=== PATIENT | female | born 1945 | race Caucasian/White ===

== ENCOUNTER 2019-01-30 20:44 | Inpatient (IN) | payer OTHER ==
[2019-01-30] MEDS ORDERED: NACL 0.9% 3 ML SYG IV (22:00)
[2019-01-30] MEDS: SOD CHLORIDE 0.9% 1,000 ML IV (22:15)
[2019-01-30 22:30] LABS: ADD MAN DIFF? NO
[2019-01-30 22:32] LABS: BASOPHILS % 0.3 % (0.0-2.0); EOSINOPHILS # 0.2 10^3/ul (0.0-0.5); EOSINOPHILS % 1.5 % (0.0-7.0); HEMATOCRIT 39.6 % (37.0-47.0); HEMOGLOBIN 12.8 g/dl (12.0-16.0); LYMPHOCYTES # 1.7 10^3/ul (0.8-2.9); LYMPHOCYTES % 16.1 % (15.0-51.0); MEAN CORPUSCULAR HGB CONC 32.3 g/dl (32.0-37.0); MEAN CORPUSCULAR VOLUME 89.6 fl (82.0-101.0); MEAN PLATELET VOLUME 9.2 fl (7.4-10.4); MONOCYTE # 1.1 10^3/ul (0.3-0.9); MONOCYTES % 10.4 % (0.0-11.0); NEUTROPHIL # 7.4 10^3/ul (1.6-7.5); NEUTROPHILS % 71.1 % (39.0-77.0); PLATELET COUNT 250 10^3/UL (140-415); RED BLOOD COUNT 4.42 10^6/ul (4.20-5.40)
[2019-01-30 22:32] LABS: WHITE BLOOD COUNT 10.4 10^3/ul (4.8-10.8)
[2019-01-30 22:52] LABS: ALANINE AMINOTRANSFERASE 22 IU/L (13-69); ALBUMIN 3.4 g/dl (3.3-4.9); ALBUMIN/GLOBULIN RATIO 1.03; ALKALINE PHOSPHATASE 120 IU/L (42-121); ANION GAP 11 (5-13); ASPARTATE AMINO TRANSFERASE 26 IU/L (15-46); BILIRUBIN,INDIRECT 0.8 mg/dl (0-1.1); BILIRUBIN,TOTAL 0.8 mg/dl (0.2-1.3); BLOOD UREA NITROGEN 10 mg/dl (7-20); CALCIUM 8.3 mg/dl (8.4-10.2); CARBON DIOXIDE 23 mmol/L (21-31); CHLORIDE 100 mmol/L (97-110); GLUCOSE 61 mg/dl (70-220); POTASSIUM 3.5 mmol/L (3.5-5.1); SODIUM 134 mmol/L (135-144); TOTAL PROTEIN 6.7 g/dl (6.1-8.1)
[2019-01-30 22:54] LABS: INR 1.25; PROTIME 15.8 Sec (11.9-14.9); PT RATIO 1.2
[2019-01-30 22:55] LABS: PARTIAL THROMBOPLASTIN TIME 33.7 Sec (23.0-35.0)
[2019-01-31] MEDS: traMADol 50 MG TAB PO ×2 (01:48→16:23)
[2019-01-31] MEDS: DEXTROSE 5%-0.45% NACL 1,000 ML IV ×3 (01:49→21:50)
[2019-01-31] MEDS ORDERED: DEXTROSE 50% 50 ML SYRINGE IV (02:00)
[2019-01-31] MEDS ORDERED: GLUCOSE GEL 15 GRAM TUBE PO ×2 (02:00)
[2019-01-31] MEDS ORDERED: GLUCAGON 1 MG INJ IM (02:00)
[2019-01-31] MEDS ORDERED: ACCU-CHEK XX (02:00)
[2019-01-31] MEDS: INSULIN ASPART [NOVOLOG] 3 ML PEN SC ×5 (05:00→21:00)
[2019-01-31] MEDS: ACETAMINOPHEN 325 MG TAB PO (05:20)
[2019-01-31 05:33] LABS: ADD MAN DIFF? NO
[2019-01-31 05:40] LABS: BASOPHILS % 0.2 % (0.0-2.0); EOSINOPHILS # 0.2 10^3/ul (0.0-0.5); EOSINOPHILS % 1.8 % (0.0-7.0); HEMATOCRIT 36.9 % (37.0-47.0); HEMOGLOBIN 12.1 g/dl (12.0-16.0); LYMPHOCYTES # 1.6 10^3/ul (0.8-2.9); LYMPHOCYTES % 16.4 % (15.0-51.0); MEAN CORPUSCULAR HEMOGLOBIN 29.1 pg (29.0-33.0); MEAN CORPUSCULAR HGB CONC 32.8 g/dl (32.0-37.0); MEAN CORPUSCULAR VOLUME 88.7 fl (82.0-101.0); MEAN PLATELET VOLUME 9.4 fl (7.4-10.4); MONOCYTE # 0.9 10^3/ul (0.3-0.9); MONOCYTES % 9.6 % (0.0-11.0); NEUTROPHIL # 6.9 10^3/ul (1.6-7.5); NEUTROPHILS % 71.6 % (39.0-77.0); PLATELET COUNT 255 10^3/UL (140-415); RED BLOOD COUNT 4.16 10^6/ul (4.20-5.40); RED CELL DISTRIBUTION WIDTH 12.9 % (11.5-14.5)
[2019-01-31 05:40] LABS: WHITE BLOOD COUNT 9.6 10^3/ul (4.8-10.8)
[2019-01-31 06:21] LABS: ALANINE AMINOTRANSFERASE 19 IU/L (13-69); ALBUMIN 3.2 g/dl (3.3-4.9); ALKALINE PHOSPHATASE 101 IU/L (42-121); ANION GAP 7 (5-13); ASPARTATE AMINO TRANSFERASE 28 IU/L (15-46); BILIRUBIN,INDIRECT 0.8 mg/dl (0-1.1); BILIRUBIN,TOTAL 0.8 mg/dl (0.2-1.3); BLOOD UREA NITROGEN 12 mg/dl (7-20); CALCIUM 8.3 mg/dl (8.4-10.2); CARBON DIOXIDE 27 mmol/L (21-31); CHLORIDE 102 mmol/L (97-110); CHOL/HDL RATIO 4.5 RATIO; CHOLESTEROL 172 mg/dl (100-200); GLUCOSE 87 mg/dl (70-220); HDL CHOLESTEROL 38 mg/dl (33-92); LDL CHOLESTEROL,CALCULATED 115 mg/dl; POTASSIUM 3.2 mmol/L (3.5-5.1); SODIUM 136 mmol/L (135-144); TOTAL PROTEIN 6.1 g/dl (6.1-8.1); TRIGLYCERIDES 93 mg/dl (0-149)
[2019-01-31 06:29] LABS: FREE T4 (FREE THYROXINE) 1.38 ng/dl (0.78-2.44)
[2019-01-31 06:33] LABS: FREE T3 2.94 pg/ml (2.77-5.27)
[2019-01-31 06:35] LABS: LACTIC ACID 0.8 mmol/L (0.5-2.0)
[2019-01-31 08:14] LABS: HEMOGLOBIN A1C 5.2 % (0-5.9)
[2019-01-31 08:50] LABS: THYROID STIMULATING HORMONE 0.145 MIU/L (0.465-4.680)
[2019-01-31] MEDS: LEVETIRACETAM 500 MG (PMX) 100 ML IVPB ×2 (09:36→20:32)
[2019-01-31] MEDS: POTASSIUM CHLORIDE 100 ML IVPB ×2 (10:49→13:40)
[2019-01-31 11:47] LABS: ADD UMIC YES; UR ASCORBIC ACID NEGATIVE (NEGATIVE); UR BILIRUBIN (Dip) NEGATIVE (NEGATIVE); UR BLOOD (Dip) 1+ mg/dL (NEGATIVE); UR CLARITY SLIGHTLY CLOUDY (CLEAR); UR COLOR YELLOW (YELLOW); UR GLUCOSE (Dip) 1+ mg/dL (NEGATIVE); UR KETONES (Dip) 1+ mg/dL (NEGATIVE); UR LEUKOCYTE ESTERASE (Dip) 1+ Leu/ul (NEGATIVE); UR NITRITE (Dip) NEGATIVE (NEGATIVE); UR RBC 3 /HPF (0-5); UR SPECIFIC GRAVITY (Dip) 1.036 (1.003-1.030); UR SQUAMOUS EPITHELIAL CELL MODERATE /HPF (FEW); UR TOTAL PROTEIN (Dip) NEGATIVE (NEGATIVE); UR UROBILINOGEN (Dip) 1+ mg/dL (NEGATIVE); UR WBC 3 /HPF (0-5)
[2019-01-31] MEDS: LACTATED RINGER'S 500 ML IV (13:41)
[2019-01-31] MEDS: ONDANSETRON 4 MG INJ IV (18:39)
[2019-01-31] MEDS: CEFTRIAXONE 1 GM/50 ML (PMX) 50 ML IVPB (20:26)
[2019-02-01] MEDS: INSULIN ASPART [NOVOLOG] 3 ML PEN SC ×6 (01:00→20:31)
[2019-02-01] MEDS ORDERED: VANCOMYCIN IV PER PHARMACY XX (02:00)
[2019-02-01] MEDS: VANCOMYCIN HCL 1.25 GM in SOD CHLORIDE 0.9% 250 ML IVPB (02:52)
[2019-02-01 05:25] LABS: ADD MAN DIFF? NO
[2019-02-01 05:30] LABS: WHITE BLOOD COUNT 8.4 10^3/ul (4.8-10.8)
[2019-02-01 05:30] LABS: BASOPHILS % 0.1 % (0.0-2.0); EOSINOPHILS # 0.2 10^3/ul (0.0-0.5); EOSINOPHILS % 2.3 % (0.0-7.0); HEMATOCRIT 37.4 % (37.0-47.0); HEMOGLOBIN 12.1 g/dl (12.0-16.0); LYMPHOCYTES % 11.9 % (15.0-51.0); MEAN CORPUSCULAR HEMOGLOBIN 28.8 pg (29.0-33.0); MEAN CORPUSCULAR HGB CONC 32.4 g/dl (32.0-37.0); MEAN PLATELET VOLUME 9.6 fl (7.4-10.4); MONOCYTE # 0.7 10^3/ul (0.3-0.9); MONOCYTES % 8.9 % (0.0-11.0); NEUTROPHIL # 6.4 10^3/ul (1.6-7.5); NEUTROPHILS % 76.3 % (39.0-77.0); PLATELET COUNT 231 10^3/UL (140-415)
[2019-02-01 06:09] LABS: T4 (THYROXINE) 7.2 ug/dl (5.5-11.0)
[2019-02-01 06:23] LABS: TRIIODOTHYRONINE 0.72 ng/ml (0.97-1.69)
[2019-02-01 07:14] LABS: ALANINE AMINOTRANSFERASE 25 IU/L (13-69); ALBUMIN 2.8 g/dl (3.3-4.9); ALKALINE PHOSPHATASE 102 IU/L (42-121); ANION GAP 5 (5-13); ASPARTATE AMINO TRANSFERASE 29 IU/L (15-46); BILIRUBIN,INDIRECT 0.6 mg/dl (0-1.1); BILIRUBIN,TOTAL 0.6 mg/dl (0.2-1.3); BLOOD UREA NITROGEN 7 mg/dl (7-20); CALCIUM 7.6 mg/dl (8.4-10.2); CARBON DIOXIDE 26 mmol/L (21-31); CHLORIDE 105 mmol/L (97-110); CREATININE 0.54 mg/dl (0.44-1.00); GLUCOSE 85 mg/dl (70-220); POTASSIUM 3.4 mmol/L (3.5-5.1); SODIUM 136 mmol/L (135-144); TOTAL PROTEIN 5.9 g/dl (6.1-8.1)
[2019-02-01] MEDS ORDERED: POTASSIUM CHLORIDE 20 MEQ in DEXTROSE 5%-0.45% NACL 1,000 ML IV (08:44)
[2019-02-01] MEDS: LEVETIRACETAM 500 MG (PMX) 100 ML IVPB ×2 (09:04→20:22)
[2019-02-01] MEDS: traMADol 50 MG TAB PO (09:10)
[2019-02-01] MEDS: D5W-0.45 NACL + KCL 20 MEQ 1,000 ML IV ×2 (09:10→19:53)
[2019-02-01] MEDS ORDERED: IOHEXOL 14.3 MG(I)/ML (ADULT) BTL PO (14:30)
[2019-02-01] MEDS: IOHEXOL 14.3 MG(I)/ML (ADULT) BTL PO (19:52)
[2019-02-01] MEDS: CEFTRIAXONE 1 GM/50 ML (PMX) 50 ML IVPB (20:05)
[2019-02-01] MEDS: IOHEXOL 300MG/ML 150 ML BTL (21:12)
[2019-02-01] MEDS: SOD CHLORIDE 0.9% 100 ML (21:12)
[2019-02-02] MEDS: INSULIN ASPART [NOVOLOG] 3 ML PEN SC ×6 (01:00→20:35)
[2019-02-02] MEDS: VANCOMYCIN 1 GM 250 ML IVPB (02:16)
[2019-02-02] MEDS: traMADol 50 MG TAB PO (03:46)
[2019-02-02 04:59] LABS: ADD MAN DIFF? NO
[2019-02-02] MEDS: D5W-0.45 NACL + KCL 20 MEQ 1,000 ML IV ×2 (05:00→13:42)
[2019-02-02 05:02] LABS: WHITE BLOOD COUNT 12.9 10^3/ul (4.8-10.8)
[2019-02-02 05:02] LABS: BASOPHILS % 0.3 % (0.0-2.0); EOSINOPHILS # 0.2 10^3/ul (0.0-0.5); EOSINOPHILS % 1.8 % (0.0-7.0); HEMATOCRIT 37.4 % (37.0-47.0); HEMOGLOBIN 12.1 g/dl (12.0-16.0); LYMPHOCYTES % 7.9 % (15.0-51.0); MEAN CORPUSCULAR HEMOGLOBIN 28.7 pg (29.0-33.0); MEAN CORPUSCULAR HGB CONC 32.4 g/dl (32.0-37.0); MEAN CORPUSCULAR VOLUME 88.8 fl (82.0-101.0); MEAN PLATELET VOLUME 9.6 fl (7.4-10.4); MONOCYTE # 1.3 10^3/ul (0.3-0.9); MONOCYTES % 10.2 % (0.0-11.0); NEUTROPHIL # 10.2 10^3/ul (1.6-7.5); NEUTROPHILS % 79.2 % (39.0-77.0); PLATELET COUNT 225 10^3/UL (140-415); RED BLOOD COUNT 4.21 10^6/ul (4.20-5.40); RED CELL DISTRIBUTION WIDTH 13.1 % (11.5-14.5)
[2019-02-02 05:27] LABS: ALANINE AMINOTRANSFERASE 24 IU/L (13-69); ALBUMIN 2.8 g/dl (3.3-4.9); ALBUMIN/GLOBULIN RATIO 0.82; ALKALINE PHOSPHATASE 102 IU/L (42-121); ANION GAP 5 (5-13); ASPARTATE AMINO TRANSFERASE 27 IU/L (15-46); BILIRUBIN,INDIRECT 0.7 mg/dl (0-1.1); BILIRUBIN,TOTAL 0.7 mg/dl (0.2-1.3); BLOOD UREA NITROGEN 15 mg/dl (7-20); CALCIUM 7.9 mg/dl (8.4-10.2); CARBON DIOXIDE 25 mmol/L (21-31); CHLORIDE 103 mmol/L (97-110); CREATININE 1.63 mg/dl (0.44-1.00); GLUCOSE 95 mg/dl (70-220); POTASSIUM 4.8 mmol/L (3.5-5.1); SODIUM 133 mmol/L (135-144); TOTAL PROTEIN 6.2 g/dl (6.1-8.1)
[2019-02-02] MEDS: LEVETIRACETAM 500 MG (PMX) 100 ML IVPB ×2 (09:36→21:18)
[2019-02-02 10:50] LABS: URIC ACID 5.3 mg/dl (3.1-7.9)
[2019-02-02 10:50] LABS: LACTATE DEHYDROGENASE 1496 IU/L (313-618)
[2019-02-02] MEDS: LIDOCAINE 1% (MPF) 5 ML VIAL (12:58)
[2019-02-02] MEDS: DEXAMETHASONE 4 MG/ML 1 ML INJ IV ×2 (16:35→22:03)
[2019-02-02] MEDS: CEFTRIAXONE 1 GM/50 ML (PMX) 50 ML IVPB (20:33)
[2019-02-03] MEDS: INSULIN ASPART [NOVOLOG] 3 ML PEN SC ×5 (01:29→17:00)
[2019-02-03 05:13] LABS: ABNORMAL IP MESSAGE 1; HEMATOCRIT 33.5 % (37.0-47.0); HEMOGLOBIN 11.1 g/dl (12.0-16.0); MEAN CORPUSCULAR HEMOGLOBIN 29.1 pg (29.0-33.0); MEAN CORPUSCULAR HGB CONC 33.1 g/dl (32.0-37.0); MEAN CORPUSCULAR VOLUME 87.9 fl (82.0-101.0); MEAN PLATELET VOLUME 10.1 fl (7.4-10.4); PLATELET COUNT 181 10^3/UL (140-415); RED BLOOD COUNT 3.81 10^6/ul (4.20-5.40); RED CELL DISTRIBUTION WIDTH 13.3 % (11.5-14.5)
[2019-02-03 05:13] LABS: WHITE BLOOD COUNT 10.9 10^3/ul (4.8-10.8)
[2019-02-03 05:24] LABS: POSITIVE DIFF @See below
[2019-02-03 05:28] LABS: ADD MAN DIFF? YES
[2019-02-03] MEDS: DEXAMETHASONE 4 MG/ML 1 ML INJ IV ×3 (05:45→21:15)
[2019-02-03 05:49] LABS: ALANINE AMINOTRANSFERASE 18 IU/L (13-69); ALBUMIN 2.6 g/dl (3.3-4.9); ALBUMIN/GLOBULIN RATIO 0.76; ALKALINE PHOSPHATASE 95 IU/L (42-121); ANION GAP 8 (5-13); ASPARTATE AMINO TRANSFERASE 23 IU/L (15-46); BILIRUBIN,INDIRECT 0.4 mg/dl (0-1.1); BILIRUBIN,TOTAL 0.4 mg/dl (0.2-1.3); BLOOD UREA NITROGEN 22 mg/dl (7-20); CALCIUM 8.2 mg/dl (8.4-10.2); CARBON DIOXIDE 19 mmol/L (21-31); CHLORIDE 106 mmol/L (97-110); CREATININE 2.17 mg/dl (0.44-1.00); GLUCOSE 185 mg/dl (70-220); POTASSIUM 5.3 mmol/L (3.5-5.1); SODIUM 133 mmol/L (135-144)
[2019-02-03 08:05] LABS: BAND NEUTROPHILS #M 1.1 10^3/ul (0.0-0.6); BAND NEUTROPHILS % (M) 11 % (0-4); BURR CELLS 3+ (0-0); LYMPHOCYTES #M 0.2 10^3/ul (0.8-2.9); LYMPHOCYTES % (M) 2 % (15-51); MONOCYTE #M 0.2 10^3/ul (0.3-0.9); MONOCYTES % (M) 2 % (0-11); OVALOCYTES 1+ (0-0); PLATELET ESTIMATE NORMAL; POIKILOCYTOSIS 3+ (0-0); SEG NEUT #M 9.4 10^3/ul (1.6-7.5); SEGMENTED NEUTROPHILS (M) % 85 % (39-77); SMUDGE%M 2 % (0-0)
[2019-02-03] MEDS: LEVETIRACETAM 500 MG (PMX) 100 ML IVPB ×2 (09:57→20:15)
[2019-02-03] MEDS: D5W-0.45 NACL + KCL 20 MEQ 1,000 ML IV ×2 (09:57)
[2019-02-03] MEDS: SOD CHLORIDE 0.9% 1,000 ML IV (11:51)
[2019-02-03 12:37] LABS: POTASSIUM,URINE RANDOM 27.4 mmol/L (25-125)
[2019-02-03 13:06] LABS: SODIUM,URINE RANDOM 100 mmol/L (30-90)
[2019-02-03 15:28] LABS: POTASSIUM 4.7 mmol/L (3.5-5.1)
[2019-02-03] MEDS: CEFTRIAXONE 1 GM/50 ML (PMX) 50 ML IVPB (20:13)
[2019-02-03] MEDS: HEPARIN 5,000 UNIT/1 ML VIAL SC (20:15)
[2019-02-03] MEDS ORDERED: ACCUCHECK 2 AM XX (20:30)
[2019-02-03] MEDS ORDERED: INSULIN ASPART [NOVOLOG] 3 ML PEN SC (21:00)
[2019-02-03] MEDS: Insulin NOVOLOG SS MILD Algorithm (SS with meals and bedtime) SC (21:00)
[2019-02-03] MEDS: ACCUCHECK AT 2AM (Patients on SS coverage) XX (21:09)
[2019-02-04 06:01] LABS: VANCOMYCIN,RANDOM 7.3 ug/ml
[2019-02-04] MEDS: DEXAMETHASONE 4 MG/ML 1 ML INJ IV ×3 (06:20→21:42)
[2019-02-04 06:39] LABS: ANION GAP 5 (5-13); BLOOD UREA NITROGEN 24 mg/dl (7-20); CALCIUM 8.5 mg/dl (8.4-10.2); CARBON DIOXIDE 24 mmol/L (21-31); CHLORIDE 112 mmol/L (97-110); CREATININE 0.96 mg/dl (0.44-1.00); GLUCOSE 123 mg/dl (70-220); POTASSIUM 4.9 mmol/L (3.5-5.1); SODIUM 141 mmol/L (135-144)
[2019-02-04] MEDS: HEPARIN 5,000 UNIT/1 ML VIAL SC ×2 (09:02→21:43)
[2019-02-04] MEDS: Insulin NOVOLOG SS MILD Algorithm (SS with meals and bedtime) SC ×4 (09:02→21:00)
[2019-02-04] MEDS: LEVETIRACETAM 500 MG (PMX) 100 ML IVPB ×2 (09:04→21:42)
[2019-02-04] MEDS: VANCOMYCIN 1 GM 250 ML IVPB (10:23)
[2019-02-04] MEDS: SOD CHLORIDE 0.9% 1,000 ML IV (14:44)
[2019-02-04] MEDS: CEFTRIAXONE 1 GM/50 ML (PMX) 50 ML IVPB (20:01)
[2019-02-05] MEDS: ACCUCHECK AT 2AM (Patients on SS coverage) XX (02:00)
[2019-02-05 05:19] LABS: ADD MAN DIFF? NO
[2019-02-05 05:26] LABS: WHITE BLOOD COUNT 7.5 10^3/ul (4.8-10.8)
[2019-02-05 05:26] LABS: ABNORMAL IP MESSAGE 1; BASOPHILS % 0.1 % (0.0-2.0); HEMATOCRIT 31.4 % (37.0-47.0); HEMOGLOBIN 10.2 g/dl (12.0-16.0); LYMPHOCYTES # 0.3 10^3/ul (0.8-2.9); LYMPHOCYTES % 4.1 % (15.0-51.0); MEAN CORPUSCULAR HGB CONC 32.5 g/dl (32.0-37.0); MEAN CORPUSCULAR VOLUME 89.2 fl (82.0-101.0); MEAN PLATELET VOLUME 9.9 fl (7.4-10.4); MONOCYTE # 0.3 10^3/ul (0.3-0.9); MONOCYTES % 3.3 % (0.0-11.0); NEUTROPHIL # 6.9 10^3/ul (1.6-7.5); PLATELET COUNT 227 10^3/UL (140-415); RED BLOOD COUNT 3.52 10^6/ul (4.20-5.40); RED CELL DISTRIBUTION WIDTH 13.6 % (11.5-14.5)
[2019-02-05] MEDS: DEXAMETHASONE 4 MG/ML 1 ML INJ IV ×3 (05:30→21:10)
[2019-02-05 05:33] LABS: POSITIVE DIFF @See below
[2019-02-05 05:49] LABS: ALBUMIN 2.8 g/dl (3.3-4.9); ANION GAP 4 (5-13); BLOOD UREA NITROGEN 20 mg/dl (7-20); CALCIUM 8.6 mg/dl (8.4-10.2); CARBON DIOXIDE 27 mmol/L (21-31); CHLORIDE 112 mmol/L (97-110); CREATININE 0.67 mg/dl (0.44-1.00); GLUCOSE 121 mg/dl (70-220); MAGNESIUM 2.2 mg/dl (1.7-2.5); PHOSPHORUS 3.2 mg/dl (2.5-4.9); POTASSIUM 4.2 mmol/L (3.5-5.1); SODIUM 143 mmol/L (135-144)
[2019-02-05] MEDS: Insulin NOVOLOG SS MILD Algorithm (SS with meals and bedtime) SC ×4 (08:33→21:00)
[2019-02-05] MEDS: LEVETIRACETAM 500 MG (PMX) 100 ML IVPB ×2 (08:50→20:56)
[2019-02-05] MEDS: HEPARIN 5,000 UNIT/1 ML VIAL SC ×2 (08:52→20:57)
[2019-02-05] MEDS: VANCOMYCIN 1 GM 250 ML IVPB (11:58)
[2019-02-05] MEDS: CEFTRIAXONE 1 GM/50 ML (PMX) 50 ML IVPB (20:57)
[2019-02-05] MEDS: SOD CHLORIDE 0.9% 1,000 ML IV (21:05)
[2019-02-06] MEDS: ACCUCHECK AT 2AM (Patients on SS coverage) XX (02:00)
[2019-02-06] MEDS: DEXAMETHASONE 4 MG/ML 1 ML INJ IV ×2 (05:15→14:53)
[2019-02-06 05:42] LABS: ADD MAN DIFF? NO
[2019-02-06 05:44] LABS: ABNORMAL IP MESSAGE 1; BASOPHILS % 0.1 % (0.0-2.0); HEMATOCRIT 29.1 % (37.0-47.0); HEMOGLOBIN 9.3 g/dl (12.0-16.0); LYMPHOCYTES # 0.4 10^3/ul (0.8-2.9); LYMPHOCYTES % 5.2 % (15.0-51.0); MEAN CORPUSCULAR HEMOGLOBIN 28.7 pg (29.0-33.0); MEAN CORPUSCULAR VOLUME 89.8 fl (82.0-101.0); MEAN PLATELET VOLUME 10.3 fl (7.4-10.4); MONOCYTE # 0.4 10^3/ul (0.3-0.9); MONOCYTES % 5.6 % (0.0-11.0); NEUTROPHIL # 6.5 10^3/ul (1.6-7.5); NEUTROPHILS % 88.6 % (39.0-77.0); PLATELET COUNT 224 10^3/UL (140-415); RED BLOOD COUNT 3.24 10^6/ul (4.20-5.40); RED CELL DISTRIBUTION WIDTH 13.5 % (11.5-14.5)
[2019-02-06 05:44] LABS: WHITE BLOOD COUNT 7.3 10^3/ul (4.8-10.8)
[2019-02-06 05:52] LABS: POSITIVE DIFF @See below
[2019-02-06 06:25] LABS: ANION GAP 7 (5-13); BLOOD UREA NITROGEN 17 mg/dl (7-20); CALCIUM 8.6 mg/dl (8.4-10.2); CARBON DIOXIDE 26 mmol/L (21-31); CHLORIDE 110 mmol/L (97-110); CREATININE 0.59 mg/dl (0.44-1.00); GLUCOSE 116 mg/dl (70-220); MAGNESIUM 1.8 mg/dl (1.7-2.5); PHOSPHORUS 2.9 mg/dl (2.5-4.9); POTASSIUM 4.3 mmol/L (3.5-5.1); SODIUM 143 mmol/L (135-144)
[2019-02-06] MEDS: Insulin NOVOLOG SS MILD Algorithm (SS with meals and bedtime) SC ×4 (07:20→20:40)
[2019-02-06] MEDS: LEVETIRACETAM 500 MG (PMX) 100 ML IVPB ×2 (08:29→20:38)
[2019-02-06] MEDS: HEPARIN 5,000 UNIT/1 ML VIAL SC ×2 (08:40→20:40)
[2019-02-06] MEDS: VANCOMYCIN 1 GM 250 ML IVPB (10:19)
[2019-02-06 16:31] LABS: FOLLICLE STIMULATING HORMONE 7.5 mIU/mL; PROLACTIN 2.1 ng/mL
[2019-02-07] MEDS: ACCUCHECK AT 2AM (Patients on SS coverage) XX ×2 (02:00→20:39)
[2019-02-07 05:23] LABS: ADD MAN DIFF? NO
[2019-02-07 05:32] LABS: ABNORMAL IP MESSAGE 1; BASOPHILS % 0.1 % (0.0-2.0); HEMOGLOBIN 9.9 g/dl (12.0-16.0); LYMPHOCYTES # 0.5 10^3/ul (0.8-2.9); LYMPHOCYTES % 6.5 % (15.0-51.0); MEAN CORPUSCULAR HEMOGLOBIN 28.3 pg (29.0-33.0); MEAN CORPUSCULAR HGB CONC 31.9 g/dl (32.0-37.0); MEAN CORPUSCULAR VOLUME 88.6 fl (82.0-101.0); MEAN PLATELET VOLUME 9.9 fl (7.4-10.4); MONOCYTE # 0.7 10^3/ul (0.3-0.9); MONOCYTES % 8.3 % (0.0-11.0); NEUTROPHIL # 6.7 10^3/ul (1.6-7.5); PLATELET COUNT 258 10^3/UL (140-415); RED CELL DISTRIBUTION WIDTH 13.4 % (11.5-14.5)
[2019-02-07 05:46] LABS: POSITIVE DIFF @See below
[2019-02-07 05:54] LABS: ANION GAP 3 (5-13); BLOOD UREA NITROGEN 18 mg/dl (7-20); CALCIUM 8.2 mg/dl (8.4-10.2); CARBON DIOXIDE 30 mmol/L (21-31); CHLORIDE 109 mmol/L (97-110); CREATININE 0.56 mg/dl (0.44-1.00); GLUCOSE 96 mg/dl (70-220); MAGNESIUM 1.9 mg/dl (1.7-2.5); PHOSPHORUS 3.2 mg/dl (2.5-4.9); POTASSIUM 4.1 mmol/L (3.5-5.1); SODIUM 142 mmol/L (135-144)
[2019-02-07] MEDS: Insulin NOVOLOG SS MILD Algorithm (SS with meals and bedtime) SC ×4 (08:15→20:36)
[2019-02-07] MEDS: LEVETIRACETAM 500 MG (PMX) 100 ML IVPB ×2 (09:14→20:31)
[2019-02-07] MEDS: HEPARIN 5,000 UNIT/1 ML VIAL SC ×2 (09:16→20:38)
[2019-02-07] MEDS: BISACODYL (EC) 5 MG TAB PO (19:08)
[2019-02-08 05:49] LABS: ADD MAN DIFF? NO
[2019-02-08 06:06] LABS: BASOPHILS % 0.4 % (0.0-2.0); EOSINOPHILS # 0.1 10^3/ul (0.0-0.5); EOSINOPHILS % 1.3 % (0.0-7.0); HEMATOCRIT 33.6 % (37.0-47.0); HEMOGLOBIN 10.6 g/dl (12.0-16.0); LYMPHOCYTES # 1.3 10^3/ul (0.8-2.9); LYMPHOCYTES % 15.5 % (15.0-51.0); MEAN CORPUSCULAR HEMOGLOBIN 28.1 pg (29.0-33.0); MEAN CORPUSCULAR HGB CONC 31.5 g/dl (32.0-37.0); MEAN CORPUSCULAR VOLUME 89.1 fl (82.0-101.0); MEAN PLATELET VOLUME 9.9 fl (7.4-10.4); MONOCYTE # 0.8 10^3/ul (0.3-0.9); NEUTROPHIL # 5.7 10^3/ul (1.6-7.5); NEUTROPHILS % 69.5 % (39.0-77.0); PLATELET COUNT 287 10^3/UL (140-415); RED BLOOD COUNT 3.77 10^6/ul (4.20-5.40); RED CELL DISTRIBUTION WIDTH 13.3 % (11.5-14.5)
[2019-02-08 06:06] LABS: WHITE BLOOD COUNT 8.2 10^3/ul (4.8-10.8)
[2019-02-08 06:19] LABS: INR 1.18; PROTIME 15.1 Sec (11.9-14.9); PT RATIO 1.2
[2019-02-08 06:20] LABS: PARTIAL THROMBOPLASTIN TIME 31.5 Sec (23.0-35.0)
[2019-02-08 06:32] LABS: ANION GAP 3 (5-13); BLOOD UREA NITROGEN 17 mg/dl (7-20); CARBON DIOXIDE 34 mmol/L (21-31); CHLORIDE 103 mmol/L (97-110); CREATININE 0.52 mg/dl (0.44-1.00); GLUCOSE 72 mg/dl (70-220); MAGNESIUM 1.9 mg/dl (1.7-2.5); PHOSPHORUS 3.6 mg/dl (2.5-4.9); POTASSIUM 3.9 mmol/L (3.5-5.1); SODIUM 140 mmol/L (135-144)
[2019-02-08] MEDS ORDERED: LIDOCAINE 2% (SDV) 5 ML INJ (07:00)
[2019-02-08] MEDS ORDERED: DESFLURANE 15 MIN (07:00)
[2019-02-08] MEDS: Insulin NOVOLOG SS MILD Algorithm (SS with meals and bedtime) SC ×4 (07:20→21:00)
[2019-02-08] MEDS: HEPARIN 5,000 UNIT/1 ML VIAL SC ×2 (09:00→20:51)
[2019-02-08] MEDS: morphine 2 MG INJ IV (09:02)
[2019-02-08] MEDS: LEVETIRACETAM 500 MG (PMX) 100 ML IVPB ×2 (09:02→20:48)
[2019-02-08] MEDS: DEXTROSE 5%-0.45% NACL 1,000 ML IV ×2 (09:39→18:53)
[2019-02-08] MEDS ORDERED: POLYMYXIN/BACITRACIN 1L IRRIG (12:48)
[2019-02-08] MEDS ORDERED: LIDOCAINE 1%/EPI 30 ML INJ (12:55)
[2019-02-08] MEDS ORDERED: POVIDONE IODINE 10% 28.4 GM OINT (13:06)
[2019-02-08] MEDS ORDERED: ALBUTEROL 0.083% (NEB) 2.5 MG/3 ML AMP HHN (13:30)
[2019-02-08] MEDS ORDERED: DIPHENHYDRAMINE 50 MG INJ IV (13:30)
[2019-02-08] MEDS ORDERED: FENTAnyl 50 MCG/ML VIAL IV ×2 (13:30)
[2019-02-08] MEDS ORDERED: METOCLOPRAMIDE 10 MG INJ IV (13:30)
[2019-02-08] MEDS ORDERED: MEPERIDINE 25 MG INJ IV (13:30)
[2019-02-08] MEDS ORDERED: HYDROmorphONE 1 MG/5 ML IV SYRINGE IV ×2 (13:30)
[2019-02-08] MEDS ORDERED: ONDANSETRON 4 MG INJ IV (13:30)
[2019-02-08] MEDS ORDERED: FENTAnyl 50 MCG/ML VIAL (13:32)
[2019-02-08] MEDS: OXYMETAZOLINE 0.05% 15 ML NAS SPRAY NASAL (14:46)
[2019-02-08] MEDS ORDERED: THROMBIN(HUM PLAS)/FIBRINOG/CA 5 ML VIAL TOP (15:40)
[2019-02-08] MEDS: THROMBIN 5000 UNIT VIAL (15:59)
[2019-02-08] MEDS: GELATIN SIZE 100 SPONGE (15:59)
[2019-02-08] MEDS ORDERED: ROCURONIUM 50 MG INJ (16:11)
[2019-02-08] MEDS ORDERED: CEFAZOLIN 1 GM INJ (16:11)
[2019-02-08] MEDS ORDERED: PROPOFOL 20 ML (16:11)
[2019-02-08] MEDS ORDERED: SUCCINYLCHOLINE CHLORIDE 100 MG/5 ML SYG IV (16:11)
[2019-02-08] MEDS ORDERED: SUGAMMADEX SODIUM 200 MG/2 ML VIAL IV (16:11)
[2019-02-08] MEDS: HYDROmorphONE 1 MG/5 ML IV SYRINGE IV (16:55)
[2019-02-08 21:44] LABS: ANION GAP 4 (5-13); BLOOD UREA NITROGEN 13 mg/dl (7-20); CALCIUM 7.2 mg/dl (8.4-10.2); CARBON DIOXIDE 30 mmol/L (21-31); CHLORIDE 102 mmol/L (97-110); CREATININE 0.54 mg/dl (0.44-1.00); GLUCOSE 113 mg/dl (70-220); POTASSIUM 3.6 mmol/L (3.5-5.1); SODIUM 136 mmol/L (135-144)
[2019-02-08] MEDS: ACCUCHECK AT 2AM (Patients on SS coverage) XX (22:13)
[2019-02-09] MEDS: DEXTROSE 5%-0.45% NACL 1,000 ML IV (04:39)
[2019-02-09 05:00] LABS: ADD MAN DIFF? NO
[2019-02-09 05:08] LABS: WHITE BLOOD COUNT 9.1 10^3/ul (4.8-10.8)
[2019-02-09 05:08] LABS: BASOPHILS % 0.3 % (0.0-2.0); EOSINOPHILS # 0.3 10^3/ul (0.0-0.5); EOSINOPHILS % 3.6 % (0.0-7.0); HEMATOCRIT 32.1 % (37.0-47.0); HEMOGLOBIN 10.3 g/dl (12.0-16.0); LYMPHOCYTES # 1.6 10^3/ul (0.8-2.9); LYMPHOCYTES % 17.2 % (15.0-51.0); MEAN CORPUSCULAR HEMOGLOBIN 28.9 pg (29.0-33.0); MEAN CORPUSCULAR HGB CONC 32.1 g/dl (32.0-37.0); MEAN CORPUSCULAR VOLUME 89.9 fl (82.0-101.0); MEAN PLATELET VOLUME 9.5 fl (7.4-10.4); MONOCYTE # 0.7 10^3/ul (0.3-0.9); MONOCYTES % 8.1 % (0.0-11.0); NEUTROPHIL # 6.1 10^3/ul (1.6-7.5); NEUTROPHILS % 66.9 % (39.0-77.0); PLATELET COUNT 273 10^3/UL (140-415); RED BLOOD COUNT 3.57 10^6/ul (4.20-5.40); RED CELL DISTRIBUTION WIDTH 13.6 % (11.5-14.5)
[2019-02-09 05:24] LABS: ANION GAP 2 (5-13); BLOOD UREA NITROGEN 11 mg/dl (7-20); CALCIUM 7.3 mg/dl (8.4-10.2); CARBON DIOXIDE 31 mmol/L (21-31); CHLORIDE 103 mmol/L (97-110); CREATININE 0.48 mg/dl (0.44-1.00); GLUCOSE 96 mg/dl (70-220); MAGNESIUM 1.9 mg/dl (1.7-2.5); PHOSPHORUS 4.5 mg/dl (2.5-4.9); POTASSIUM 3.8 mmol/L (3.5-5.1); SODIUM 136 mmol/L (135-144)
[2019-02-09] MEDS: Insulin NOVOLOG SS MILD Algorithm (SS with meals and bedtime) SC ×4 (07:20→20:02)
[2019-02-09] MEDS: LEVETIRACETAM 500 MG (PMX) 100 ML IVPB ×2 (08:21→20:07)
[2019-02-09] MEDS: HEPARIN 5,000 UNIT/1 ML VIAL SC (08:22)
[2019-02-09 09:47] LABS: ANION GAP 5 (5-13); BLOOD UREA NITROGEN 11 mg/dl (7-20); CALCIUM 7.2 mg/dl (8.4-10.2); CARBON DIOXIDE 28 mmol/L (21-31); CHLORIDE 102 mmol/L (97-110); CREATININE 0.52 mg/dl (0.44-1.00); GLUCOSE 82 mg/dl (70-220); SODIUM 135 mmol/L (135-144)
[2019-02-09 10:27] LABS: ADD MAN DIFF? NO
[2019-02-09] MEDS: DEXAMETHASONE 4 MG/ML 1 ML INJ IV ×3 (10:28→22:01)
[2019-02-09 10:30] LABS: BASOPHILS % 0.3 % (0.0-2.0); EOSINOPHILS # 0.4 10^3/ul (0.0-0.5); EOSINOPHILS % 3.8 % (0.0-7.0); HEMATOCRIT 30.1 % (37.0-47.0); HEMOGLOBIN 9.8 g/dl (12.0-16.0); LYMPHOCYTES # 1.6 10^3/ul (0.8-2.9); MEAN CORPUSCULAR HEMOGLOBIN 29.3 pg (29.0-33.0); MEAN CORPUSCULAR HGB CONC 32.6 g/dl (32.0-37.0); MEAN CORPUSCULAR VOLUME 90.1 fl (82.0-101.0); MEAN PLATELET VOLUME 9.3 fl (7.4-10.4); MONOCYTE # 0.9 10^3/ul (0.3-0.9); MONOCYTES % 8.5 % (0.0-11.0); NEUTROPHIL # 6.7 10^3/ul (1.6-7.5); NEUTROPHILS % 66.5 % (39.0-77.0); PLATELET COUNT 255 10^3/UL (140-415); RED BLOOD COUNT 3.34 10^6/ul (4.20-5.40); RED CELL DISTRIBUTION WIDTH 13.6 % (11.5-14.5)
[2019-02-09 10:30] LABS: WHITE BLOOD COUNT 10.1 10^3/ul (4.8-10.8)
[2019-02-09] MEDS: IOHEXOL 100 ML (10:30)
[2019-02-09] MEDS: SOD CHLORIDE 0.9% 100 ML (10:30)
[2019-02-09 10:40] LABS: HEMOGLOBIN A1C 5.5 % (0-5.9)
[2019-02-09 10:47] LABS: ANION GAP 2 (5-13); BLOOD UREA NITROGEN 12 mg/dl (7-20); CALCIUM 7.1 mg/dl (8.4-10.2); CARBON DIOXIDE 30 mmol/L (21-31); CHLORIDE 101 mmol/L (97-110); CHOL/HDL RATIO 5.7 RATIO; CHOLESTEROL 139 mg/dl (100-200); CREATINE KINASE 31 IU/L (23-200); CREATININE 0.54 mg/dl (0.44-1.00); GLUCOSE 90 mg/dl (70-220); HDL CHOLESTEROL 24 mg/dl (33-92); LDL CHOLESTEROL,CALCULATED 97 mg/dl; SODIUM 133 mmol/L (135-144); TRIGLYCERIDES 90 mg/dl (0-149)
[2019-02-09 10:48] LABS: INR 1.27; PT RATIO 1.3
[2019-02-09 10:49] LABS: PARTIAL THROMBOPLASTIN TIME 39.7 Sec (23.0-35.0)
[2019-02-09 10:58] LABS: CK INDEX 0.7; CK-MB < 0.22 ng/ml (0.0-2.4); TROPONIN-I < 0.012 ng/ml (0.000-0.120)
[2019-02-09] MEDS: SOD CHLORIDE 0.9% 1,000 ML IV ×3 (12:51→22:01)
[2019-02-09 17:23] LABS: ADD UMIC YES; UR ASCORBIC ACID NEGATIVE (NEGATIVE); UR BILIRUBIN (Dip) NEGATIVE (NEGATIVE); UR BLOOD (Dip) 1+ mg/dL (NEGATIVE); UR CLARITY CLEAR (CLEAR); UR COLOR STRAW (YELLOW); UR GLUCOSE (Dip) NEGATIVE (NEGATIVE); UR KETONES (Dip) NEGATIVE (NEGATIVE); UR LEUKOCYTE ESTERASE (Dip) NEGATIVE Leu/ul (NEGATIVE); UR NITRITE (Dip) NEGATIVE (NEGATIVE); UR RBC 1 /HPF (0-5); UR SPECIFIC GRAVITY (Dip) 1.018 (1.003-1.030); UR TOTAL PROTEIN (Dip) NEGATIVE (NEGATIVE); UR UROBILINOGEN (Dip) NEGATIVE (NEGATIVE); UR WBC 0 /HPF (0-5)
[2019-02-09 18:06] LABS: ALANINE AMINOTRANSFERASE 42 IU/L (13-69); ALBUMIN 2.1 g/dl (3.3-4.9); ALBUMIN/GLOBULIN RATIO 0.77; ALKALINE PHOSPHATASE 96 IU/L (42-121); ANION GAP 3 (5-13); ASPARTATE AMINO TRANSFERASE 18 IU/L (15-46); BILIRUBIN,INDIRECT 0.3 mg/dl (0-1.1); BILIRUBIN,TOTAL 0.3 mg/dl (0.2-1.3); BLOOD UREA NITROGEN 12 mg/dl (7-20); CALCIUM 6.9 mg/dl (8.4-10.2); CARBON DIOXIDE 29 mmol/L (21-31); CHLORIDE 107 mmol/L (97-110); CREATININE 0.47 mg/dl (0.44-1.00); GLUCOSE 122 mg/dl (70-220); POTASSIUM 4.3 mmol/L (3.5-5.1); SODIUM 139 mmol/L (135-144); TOTAL PROTEIN 4.8 g/dl (6.1-8.1)
[2019-02-09] MEDS: ASPIRIN 81 MG TAB PO (18:56)
[2019-02-09] MEDS: PIPER-TAZO 3.375 GM IV (PMX) 100 ML IVPB (19:09)
[2019-02-09] MEDS: NORepinephrine 8MG/250 ML (PMX 250 ML IV (20:01)
[2019-02-09] MEDS: ATORVASTATIN 40 MG TAB PO ×3 (20:07→20:13)
[2019-02-09] MEDS ORDERED: ATROPINE 1 MG/10 ML SYRINGE (22:33)
[2019-02-09 22:36] LABS: AMPHETAMINE/METHAMPHETAMINE Negative (NEGATIVE); BARBITURATES Negative (NEGATIVE); BENZODIAZEPINES Negative (NEGATIVE); CANNABINOIDS Negative (NEGATIVE); COCAINE Negative (NEGATIVE); OPIATES Negative (NEGATIVE)
[2019-02-09 22:56] LABS: ANION GAP 2 (5-13); BLOOD UREA NITROGEN 14 mg/dl (7-20); CALCIUM 7.5 mg/dl (8.4-10.2); CARBON DIOXIDE 30 mmol/L (21-31); CHLORIDE 109 mmol/L (97-110); CREATININE 0.54 mg/dl (0.44-1.00); GLUCOSE 124 mg/dl (70-220); POTASSIUM 4.2 mmol/L (3.5-5.1); SODIUM 141 mmol/L (135-144)
[2019-02-10] MEDS: PIPER-TAZO 3.375 GM IV (PMX) 100 ML IVPB ×4 (00:49→18:04)
[2019-02-10] MEDS: ACCUCHECK AT 2AM (Patients on SS coverage) XX (02:00)
[2019-02-10 05:37] LABS: WHITE BLOOD COUNT 12.7 10^3/ul (4.8-10.8)
[2019-02-10 05:37] LABS: HEMATOCRIT 29.8 % (37.0-47.0); HEMOGLOBIN 9.5 g/dl (12.0-16.0); MEAN CORPUSCULAR HEMOGLOBIN 28.6 pg (29.0-33.0); MEAN CORPUSCULAR HGB CONC 31.9 g/dl (32.0-37.0); MEAN CORPUSCULAR VOLUME 89.8 fl (82.0-101.0); MEAN PLATELET VOLUME 9.4 fl (7.4-10.4); PLATELET COUNT 301 10^3/UL (140-415); RED BLOOD COUNT 3.32 10^6/ul (4.20-5.40); RED CELL DISTRIBUTION WIDTH 13.7 % (11.5-14.5)
[2019-02-10 05:43] LABS: ADD MAN DIFF? YES; POSITIVE DIFF @See below
[2019-02-10] MEDS: DEXAMETHASONE 4 MG/ML 1 ML INJ IV ×3 (06:29→20:41)
[2019-02-10 06:48] LABS: ANION GAP 3 (5-13); BLOOD UREA NITROGEN 16 mg/dl (7-20); CALCIUM 7.5 mg/dl (8.4-10.2); CARBON DIOXIDE 28 mmol/L (21-31); CHLORIDE 112 mmol/L (97-110); CREATININE 0.51 mg/dl (0.44-1.00); GLUCOSE 114 mg/dl (70-220); MAGNESIUM 2.3 mg/dl (1.7-2.5); PHOSPHORUS 4.2 mg/dl (2.5-4.9); SODIUM 143 mmol/L (135-144)
[2019-02-10 07:51] LABS: ANISOCYTOSIS 1+ (0-0); BAND NEUTROPHILS #M 0.5 10^3/ul (0.0-0.6); BAND NEUTROPHILS % (M) 4 % (0-4); BURR CELLS 3+ (0-0); LYMPHOCYTES #M 0.5 10^3/ul (0.8-2.9); LYMPHOCYTES % (M) 4 % (15-51); METAMYELOCYTES #M 0.1 10^3/ul (0.0-0.0); METAMYELOCYTES %M 1 % (0-0); MONOCYTE #M 0.2 10^3/ul (0.3-0.9); MONOCYTES % (M) 2 % (0-11); MYELOCYTES #M 0.1 10^3/ul (0.0-0.0); MYELOCYTES % (M) 1 % (0-0); PLATELET ESTIMATE NORMAL; POIKILOCYTOSIS 3+ (0-0); POLYCHROMASIA 1+ (0-0); SEG NEUT #M 11.2 10^3/ul (1.6-7.5); SEGMENTED NEUTROPHILS (M) % 88 % (39-77); SMUDGE%M 13 % (0-0); TEAR DROP CELLS 1+ (0-0)
[2019-02-10] MEDS: Insulin NOVOLOG SS MILD Algorithm (SS with meals and bedtime) SC ×4 (08:02→20:39)
[2019-02-10] MEDS: LEVETIRACETAM 500 MG (PMX) 100 ML IVPB ×2 (08:29→20:38)
[2019-02-10] MEDS: ASPIRIN 81 MG TAB PO (08:29)
[2019-02-10] MEDS: SOD CHLORIDE 0.9% 1,000 ML IV (08:29)
[2019-02-10 12:50] LABS: ANION GAP 5 (5-13); BLOOD UREA NITROGEN 17 mg/dl (7-20); CALCIUM 7.2 mg/dl (8.4-10.2); CARBON DIOXIDE 25 mmol/L (21-31); CHLORIDE 107 mmol/L (97-110); CREATININE 0.51 mg/dl (0.44-1.00); GLUCOSE 136 mg/dl (70-220); POTASSIUM 3.6 mmol/L (3.5-5.1); SODIUM 137 mmol/L (135-144)
[2019-02-10] MEDS: ACETAMINOPHEN 325 MG TAB PO ×2 (18:03→20:38)
[2019-02-10] MEDS: ATORVASTATIN 40 MG TAB PO (20:38)
[2019-02-10 21:58] LABS: ANION GAP 3 (5-13); BLOOD UREA NITROGEN 18 mg/dl (7-20); CALCIUM 7.6 mg/dl (8.4-10.2); CARBON DIOXIDE 26 mmol/L (21-31); CHLORIDE 108 mmol/L (97-110); CREATININE 0.62 mg/dl (0.44-1.00); GLUCOSE 153 mg/dl (70-220); SODIUM 137 mmol/L (135-144)
[2019-02-11] MEDS: PIPER-TAZO 3.375 GM IV (PMX) 100 ML IVPB ×4 (00:01→17:35)
[2019-02-11] MEDS: ACCUCHECK AT 2AM (Patients on SS coverage) XX (02:00)
[2019-02-11 05:12] LABS: ADD MAN DIFF? NO
[2019-02-11 05:22] LABS: WHITE BLOOD COUNT 11.5 10^3/ul (4.8-10.8)
[2019-02-11 05:22] LABS: BASOPHILS % 0.2 % (0.0-2.0); HEMOGLOBIN 8.7 g/dl (12.0-16.0); LYMPHOCYTES # 0.6 10^3/ul (0.8-2.9); LYMPHOCYTES % 5.5 % (15.0-51.0); MEAN CORPUSCULAR HEMOGLOBIN 28.7 pg (29.0-33.0); MEAN CORPUSCULAR HGB CONC 32.2 g/dl (32.0-37.0); MEAN CORPUSCULAR VOLUME 89.1 fl (82.0-101.0); MEAN PLATELET VOLUME 9.7 fl (7.4-10.4); MONOCYTE # 0.3 10^3/ul (0.3-0.9); MONOCYTES % 2.5 % (0.0-11.0); NEUTROPHIL # 10.3 10^3/ul (1.6-7.5); NEUTROPHILS % 90.1 % (39.0-77.0); PLATELET COUNT 301 10^3/UL (140-415); RED BLOOD COUNT 3.03 10^6/ul (4.20-5.40); RED CELL DISTRIBUTION WIDTH 13.5 % (11.5-14.5)
[2019-02-11] MEDS: DEXAMETHASONE 4 MG/ML 1 ML INJ IV ×3 (05:25→21:10)
[2019-02-11 05:56] LABS: PHOSPHORUS 3.4 mg/dl (2.5-4.9)
[2019-02-11 05:56] LABS: MAGNESIUM 2.3 mg/dl (1.7-2.5)
[2019-02-11 06:01] LABS: ANION GAP 2 (5-13); BLOOD UREA NITROGEN 18 mg/dl (7-20); CALCIUM 7.7 mg/dl (8.4-10.2); CARBON DIOXIDE 27 mmol/L (21-31); CHLORIDE 111 mmol/L (97-110); CREATININE 0.59 mg/dl (0.44-1.00); GLUCOSE 106 mg/dl (70-220); POTASSIUM 4.3 mmol/L (3.5-5.1); SODIUM 140 mmol/L (135-144)
[2019-02-11] MEDS: Insulin NOVOLOG SS MILD Algorithm (SS with meals and bedtime) SC ×4 (07:05→21:00)
[2019-02-11] MEDS: LEVETIRACETAM 500 MG (PMX) 100 ML IVPB ×2 (08:24→20:40)
[2019-02-11] MEDS: ASPIRIN 81 MG TAB PO (08:24)
[2019-02-11 09:13] LABS: ADD MAN DIFF? NO
[2019-02-11 09:14] LABS: WHITE BLOOD COUNT 10.8 10^3/ul (4.8-10.8)
[2019-02-11 09:14] LABS: ABNORMAL IP MESSAGE 1; BASOPHILS % 0.1 % (0.0-2.0); HEMATOCRIT 27.9 % (37.0-47.0); LYMPHOCYTES # 0.5 10^3/ul (0.8-2.9); LYMPHOCYTES % 4.7 % (15.0-51.0); MEAN CORPUSCULAR HEMOGLOBIN 28.8 pg (29.0-33.0); MEAN CORPUSCULAR HGB CONC 32.3 g/dl (32.0-37.0); MEAN CORPUSCULAR VOLUME 89.1 fl (82.0-101.0); MEAN PLATELET VOLUME 9.4 fl (7.4-10.4); MONOCYTE # 0.3 10^3/ul (0.3-0.9); MONOCYTES % 3.2 % (0.0-11.0); NEUTROPHIL # 9.7 10^3/ul (1.6-7.5); NEUTROPHILS % 90.2 % (39.0-77.0); PLATELET COUNT 320 10^3/UL (140-415); RED BLOOD COUNT 3.13 10^6/ul (4.20-5.40); RED CELL DISTRIBUTION WIDTH 13.6 % (11.5-14.5)
[2019-02-11 09:16] LABS: POSITIVE DIFF @See below
[2019-02-11 12:46] LABS: OCCULT BLOOD STOOL NEGATIVE (NEGATIVE)
[2019-02-11 18:48] LABS: ANION GAP 5 (5-13); BLOOD UREA NITROGEN 18 mg/dl (7-20); CALCIUM 7.7 mg/dl (8.4-10.2); CARBON DIOXIDE 24 mmol/L (21-31); CHLORIDE 109 mmol/L (97-110); GLUCOSE 106 mg/dl (70-220); POTASSIUM 4.1 mmol/L (3.5-5.1); SODIUM 138 mmol/L (135-144)
[2019-02-11] MEDS: ATORVASTATIN 40 MG TAB PO (20:40)
[2019-02-11] MEDS: morphine 2 MG INJ IV (20:40)
[2019-02-12] MEDS: ACCUCHECK AT 2AM (Patients on SS coverage) XX (00:16)
[2019-02-12] MEDS: PIPER-TAZO 3.375 GM IV (PMX) 100 ML IVPB ×3 (00:29→12:21)
[2019-02-12 05:49] LABS: ADD MAN DIFF? NO
[2019-02-12] MEDS: DEXAMETHASONE 4 MG/ML 1 ML INJ IV ×3 (05:57→21:33)
[2019-02-12 06:14] LABS: BASOPHILS % 0.1 % (0.0-2.0); HEMATOCRIT 27.4 % (37.0-47.0); LYMPHOCYTES # 0.7 10^3/ul (0.8-2.9); LYMPHOCYTES % 7.5 % (15.0-51.0); MEAN CORPUSCULAR HEMOGLOBIN 29.4 pg (29.0-33.0); MEAN CORPUSCULAR HGB CONC 32.8 g/dl (32.0-37.0); MEAN CORPUSCULAR VOLUME 89.5 fl (82.0-101.0); MEAN PLATELET VOLUME 9.6 fl (7.4-10.4); MONOCYTE # 0.5 10^3/ul (0.3-0.9); MONOCYTES % 4.8 % (0.0-11.0); NEUTROPHIL # 8.1 10^3/ul (1.6-7.5); NEUTROPHILS % 86.2 % (39.0-77.0); PLATELET COUNT 320 10^3/UL (140-415); RED BLOOD COUNT 3.06 10^6/ul (4.20-5.40); RED CELL DISTRIBUTION WIDTH 13.6 % (11.5-14.5)
[2019-02-12 06:14] LABS: WHITE BLOOD COUNT 9.4 10^3/ul (4.8-10.8)
[2019-02-12 06:49] LABS: PHOSPHORUS 3.7 mg/dl (2.5-4.9)
[2019-02-12 06:49] LABS: MAGNESIUM 2.3 mg/dl (1.7-2.5)
[2019-02-12] MEDS: Insulin NOVOLOG SS MILD Algorithm (SS with meals and bedtime) SC ×4 (07:05→20:40)
[2019-02-12 07:16] LABS: ANION GAP 2 (5-13); BLOOD UREA NITROGEN 17 mg/dl (7-20); CALCIUM 7.9 mg/dl (8.4-10.2); CARBON DIOXIDE 28 mmol/L (21-31); CHLORIDE 111 mmol/L (97-110); CREATININE 0.62 mg/dl (0.44-1.00); GLUCOSE 90 mg/dl (70-220); POTASSIUM 4.2 mmol/L (3.5-5.1); SODIUM 141 mmol/L (135-144)
[2019-02-12] MEDS: LEVETIRACETAM 500 MG (PMX) 100 ML IVPB ×2 (10:54→20:41)
[2019-02-12] MEDS: ASPIRIN 81 MG TAB PO (10:54)
[2019-02-12] MEDS: morphine 2 MG INJ IV (15:21)
[2019-02-12] MEDS: BISACODYL (EC) 5 MG TAB PO (18:32)
[2019-02-12 18:33] LABS: ANION GAP 1 (5-13); BLOOD UREA NITROGEN 18 mg/dl (7-20); CALCIUM 7.8 mg/dl (8.4-10.2); CARBON DIOXIDE 30 mmol/L (21-31); CHLORIDE 107 mmol/L (97-110); CREATININE 0.66 mg/dl (0.44-1.00); GLUCOSE 108 mg/dl (70-220); POTASSIUM 4.2 mmol/L (3.5-5.1); SODIUM 138 mmol/L (135-144)
[2019-02-12] MEDS: POLYETHYLENE GLYCOL 3350 119 GM POWDER PO (18:33)
[2019-02-12] MEDS: MAGNESIUM CITRATE 300 ML BTL PO (18:34)
[2019-02-12] MEDS: ATORVASTATIN 40 MG TAB PO (20:41)
[2019-02-13] MEDS: ACCUCHECK AT 2AM (Patients on SS coverage) XX (02:00)
[2019-02-13] MEDS: DEXAMETHASONE 4 MG/ML 1 ML INJ IV ×3 (06:14→21:32)
[2019-02-13 07:14] LABS: ANION GAP 3 (5-13); BLOOD UREA NITROGEN 16 mg/dl (7-20); CARBON DIOXIDE 30 mmol/L (21-31); CHLORIDE 109 mmol/L (97-110); CREATININE 0.49 mg/dl (0.44-1.00); GLUCOSE 79 mg/dl (70-220); SODIUM 142 mmol/L (135-144)
[2019-02-13 07:15] LABS: CALCIUM 7.5 mg/dl (8.4-10.2)
[2019-02-13] MEDS: Insulin NOVOLOG SS MILD Algorithm (SS with meals and bedtime) SC ×4 (07:25→20:21)
[2019-02-13] MEDS: LEVETIRACETAM 500 MG (PMX) 100 ML IVPB ×2 (08:33→20:22)
[2019-02-13] MEDS: POLYETHYLENE GLYCOL 3350 119 GM POWDER PO (08:33)
[2019-02-13] MEDS: ASPIRIN 81 MG TAB PO (08:34)
[2019-02-13] MEDS: BISACODYL (EC) 5 MG TAB PO (08:34)
[2019-02-13] MEDS ORDERED: GLYCOPYRROLATE 0.4 MG INJ (09:00)
[2019-02-13] MEDS: DEXTROSE 5%-0.45% NACL 1,000 ML IV (12:24)
[2019-02-13] MEDS: LIDOCAINE 100 MG SYRINGE (17:36)
[2019-02-13] MEDS: PROPOFOL 40 ML (17:36)
[2019-02-13] MEDS: ATORVASTATIN 40 MG TAB PO (20:21)
[2019-02-13] MEDS: morphine 2 MG INJ IV (21:32)
[2019-02-13 23:49] LABS: ANION GAP 5 (5-13); BLOOD UREA NITROGEN 14 mg/dl (7-20); CALCIUM 7.4 mg/dl (8.4-10.2); CARBON DIOXIDE 28 mmol/L (21-31); CHLORIDE 105 mmol/L (97-110); CREATININE 0.54 mg/dl (0.44-1.00); GLUCOSE 75 mg/dl (70-220); POTASSIUM 3.6 mmol/L (3.5-5.1); SODIUM 138 mmol/L (135-144)
[2019-02-14] MEDS: morphine 2 MG INJ IV ×3 (01:27→18:53)
[2019-02-14 06:04] LABS: ANION GAP 4 (5-13); BLOOD UREA NITROGEN 15 mg/dl (7-20); CALCIUM 7.7 mg/dl (8.4-10.2); CARBON DIOXIDE 32 mmol/L (21-31); CHLORIDE 105 mmol/L (97-110); GLUCOSE 81 mg/dl (70-220); POTASSIUM 3.8 mmol/L (3.5-5.1); SODIUM 141 mmol/L (135-144)
[2019-02-14] MEDS: DEXAMETHASONE 4 MG/ML 1 ML INJ IV ×3 (06:04→21:57)
[2019-02-14] MEDS: ONDANSETRON 4 MG INJ IV ×2 (06:21→21:57)
[2019-02-14] MEDS: Insulin NOVOLOG SS MILD Algorithm (SS with meals and bedtime) SC ×4 (08:30→21:00)
[2019-02-14] MEDS: ASPIRIN 81 MG TAB PO (09:32)
[2019-02-14] MEDS: LEVETIRACETAM 500 MG (PMX) 100 ML IVPB ×2 (09:32→21:50)
[2019-02-14 16:35] LABS: ALANINE AMINOTRANSFERASE 47 IU/L (13-69); ALBUMIN 2.9 g/dl (3.3-4.9); ALKALINE PHOSPHATASE 105 IU/L (42-121); ANION GAP 6 (5-13); ASPARTATE AMINO TRANSFERASE 28 IU/L (15-46); BILIRUBIN,INDIRECT 0.5 mg/dl (0-1.1); BILIRUBIN,TOTAL 0.5 mg/dl (0.2-1.3); BLOOD UREA NITROGEN 15 mg/dl (7-20); CALCIUM 8.1 mg/dl (8.4-10.2); CARBON DIOXIDE 24 mmol/L (21-31); CHLORIDE 106 mmol/L (97-110); CREATININE 0.45 mg/dl (0.44-1.00); GLUCOSE 75 mg/dl (70-220); POTASSIUM 4.4 mmol/L (3.5-5.1); SODIUM 136 mmol/L (135-144); TOTAL PROTEIN 5.8 g/dl (6.1-8.1)
[2019-02-14] MEDS: ATORVASTATIN 40 MG TAB PO (21:50)
[2019-02-14] MEDS: DEXTROSE 5%-0.45% NACL 1,000 ML IV (23:28)
[2019-02-15] MEDS: DEXAMETHASONE 4 MG/ML 1 ML INJ IV ×3 (05:11→20:05)
[2019-02-15] MEDS: ONDANSETRON 4 MG INJ IV ×2 (05:12→12:35)
[2019-02-15] MEDS: morphine 2 MG INJ IV (05:12)
[2019-02-15 05:24] LABS: ABNORMAL IP MESSAGE 1; HEMATOCRIT 38.9 % (37.0-47.0); HEMOGLOBIN 12.5 g/dl (12.0-16.0); MEAN CORPUSCULAR HEMOGLOBIN 28.3 pg (29.0-33.0); MEAN CORPUSCULAR HGB CONC 32.1 g/dl (32.0-37.0); MEAN CORPUSCULAR VOLUME 88.2 fl (82.0-101.0); MEAN PLATELET VOLUME 9.4 fl (7.4-10.4); PLATELET COUNT 485 10^3/UL (140-415); RED BLOOD COUNT 4.41 10^6/ul (4.20-5.40); RED CELL DISTRIBUTION WIDTH 14.1 % (11.5-14.5)
[2019-02-15 05:24] LABS: WHITE BLOOD COUNT 27.2 10^3/ul (4.8-10.8)
[2019-02-15 05:46] LABS: ADD MAN DIFF? YES; POSITIVE DIFF @See below
[2019-02-15] MEDS: DEXTROSE 5%-0.45% NACL 1,000 ML IV (06:23)
[2019-02-15] MEDS: Insulin NOVOLOG SS MILD Algorithm (SS with meals and bedtime) SC ×4 (07:20→20:14)
[2019-02-15 07:48] LABS: BAND NEUTROPHILS #M 1.9 10^3/ul (0.0-0.6); BAND NEUTROPHILS % (M) 7 % (0-4); BURR CELLS 2+ (0-0); LYMPHOCYTES #M 0.8 10^3/ul (0.8-2.9); LYMPHOCYTES % (M) 3 % (15-51); MONOCYTE #M 1.9 10^3/ul (0.3-0.9); MONOCYTES % (M) 7 % (0-11); PLATELET ESTIMATE NORMAL; POIKILOCYTOSIS 3+ (0-0); SEG NEUT #M 23.1 10^3/ul (1.6-7.5); SEGMENTED NEUTROPHILS (M) % 83 % (39-77); SMUDGE%M 1 % (0-0)
[2019-02-15] MEDS: LEVETIRACETAM 500 MG (PMX) 100 ML IVPB ×2 (08:01→20:05)
[2019-02-15] MEDS: METOCLOPRAMIDE 10 MG INJ IV (12:00)
[2019-02-15] MEDS ORDERED: FAMOTIDINE 20 MG INJ IV (12:00)
[2019-02-15] MEDS: POLYMYXIN/BACITRACIN 1L IRRIG IRR (12:39)
[2019-02-15] MEDS: CEFAZOLIN 1 GM/50 ML (PMX) 50 ML IVPB (12:39)
[2019-02-15] MEDS: LACTATED RINGER'S 1,000 ML IV (15:15)
[2019-02-15] MEDS ORDERED: PHENYLephrine 20MG IN 250 ML 250 ML ×2 (16:24→18:27)
[2019-02-15] MEDS ORDERED: NORepinephrine 8MG/250 ML (PMX 250 ML (16:29)
[2019-02-15] MEDS: NORepinephrine 8MG/250 ML (PMX 250 ML IV ×2 (17:13→23:40)
[2019-02-15] MEDS: PANTOPRAZOLE (EC) 40 MG TAB PO (18:00)
[2019-02-15] MEDS: PHENYLephrine 20MG IN 250 ML 250 ML IV ×3 (20:05→23:41)
[2019-02-15] MEDS: ATORVASTATIN 40 MG TAB PO (20:06)
[2019-02-16] MEDS: PHENYLephrine 20MG IN 250 ML 250 ML IV ×3 (01:22→07:01)
[2019-02-16] MEDS: FAMOTIDINE 20 MG INJ IV ×2 (05:21→18:14)
[2019-02-16] MEDS ORDERED: PANTOPRAZOLE 40 MG INJ IV (06:00)
[2019-02-16] MEDS: NORepinephrine 8MG/250 ML (PMX 250 ML IV (07:01)
[2019-02-16] MEDS: LEVETIRACETAM 500 MG (PMX) 100 ML IVPB ×2 (09:47→21:10)
[2019-02-16] MEDS: DEXAMETHASONE 4 MG/ML 1 ML INJ IV ×2 (09:48→21:10)
[2019-02-16] MEDS: Insulin NOVOLOG SS MILD Algorithm (SS with meals and bedtime) SC ×4 (09:52→21:00)
[2019-02-16] MEDS: LACTATED RINGER'S 1,000 ML IV (10:10)
[2019-02-16 10:15] LABS: ADD MAN DIFF? NO
[2019-02-16 10:17] LABS: WHITE BLOOD COUNT 15.5 10^3/ul (4.8-10.8)
[2019-02-16 10:17] LABS: ABNORMAL IP MESSAGE 1; BASOPHIL # 0.1 10^3/ul (0.0-0.1); BASOPHILS % 0.9 % (0.0-2.0); HEMATOCRIT 34.6 % (37.0-47.0); HEMOGLOBIN 11.1 g/dl (12.0-16.0); LYMPHOCYTES % 6.5 % (15.0-51.0); MEAN CORPUSCULAR HEMOGLOBIN 28.5 pg (29.0-33.0); MEAN CORPUSCULAR HGB CONC 32.1 g/dl (32.0-37.0); MEAN CORPUSCULAR VOLUME 88.7 fl (82.0-101.0); MONOCYTE # 0.5 10^3/ul (0.3-0.9); NEUTROPHIL # 13.7 10^3/ul (1.6-7.5); NEUTROPHILS % 88.8 % (39.0-77.0); PLATELET COUNT 323 10^3/UL (140-415); RED CELL DISTRIBUTION WIDTH 14.6 % (11.5-14.5)
[2019-02-16 10:23] LABS: POSITIVE DIFF @See below
[2019-02-16 10:36] LABS: ALANINE AMINOTRANSFERASE 31 IU/L (13-69); ALBUMIN 2.4 g/dl (3.3-4.9); ALBUMIN/GLOBULIN RATIO 0.96; ALKALINE PHOSPHATASE 82 IU/L (42-121); ANION GAP 8 (5-13); ASPARTATE AMINO TRANSFERASE 27 IU/L (15-46); BILIRUBIN,INDIRECT 0.5 mg/dl (0-1.1); BILIRUBIN,TOTAL 0.5 mg/dl (0.2-1.3); BLOOD UREA NITROGEN 41 mg/dl (7-20); CALCIUM 7.2 mg/dl (8.4-10.2); CARBON DIOXIDE 22 mmol/L (21-31); CHLORIDE 106 mmol/L (97-110); CREATININE 1.51 mg/dl (0.44-1.00); GLUCOSE 95 mg/dl (70-220); MAGNESIUM 2.1 mg/dl (1.7-2.5); PHOSPHORUS 4.5 mg/dl (2.5-4.9); SODIUM 136 mmol/L (135-144); TOTAL PROTEIN 4.9 g/dl (6.1-8.1)
[2019-02-16] MEDS ORDERED: PIPER-TAZO 3.375 GM IV (PMX) 100 ML IVPB (12:00)
[2019-02-16] MEDS: PIPER-TAZO 3.375 GM IV (PMX) 100 ML IVPB (12:50)
[2019-02-16] MEDS: SOD CHLORIDE 0.9% 1,000 ML IV ×2 (12:50→23:40)
[2019-02-16] MEDS ORDERED: VANCOMYCIN IV PER PHARMACY XX (13:30)
[2019-02-16] MEDS: VANCOMYCIN HCL 1.25 GM in SOD CHLORIDE 0.9% 250 ML IVPB (14:41)
[2019-02-16] MEDS: PIPER-TAZO 2.25 GM (PMX) 50 ML IVPB ×2 (18:14→23:40)
[2019-02-16] MEDS: ATORVASTATIN 40 MG TAB PO (21:10)
[2019-02-16] MEDS: traZODone 50 MG TAB PO (21:10)
[2019-02-17] MEDS: PHENYLephrine 20MG IN 250 ML 250 ML IV (04:48)
[2019-02-17] MEDS: PIPER-TAZO 2.25 GM (PMX) 50 ML IVPB ×3 (05:12→17:33)
[2019-02-17 05:15] LABS: ABNORMAL IP MESSAGE 1; HEMATOCRIT 29.2 % (37.0-47.0); HEMOGLOBIN 9.6 g/dl (12.0-16.0); MEAN CORPUSCULAR HEMOGLOBIN 28.9 pg (29.0-33.0); MEAN CORPUSCULAR HGB CONC 32.9 g/dl (32.0-37.0); MEAN PLATELET VOLUME 10.9 fl (7.4-10.4); PLATELET COUNT 196 10^3/UL (140-415); RED BLOOD COUNT 3.32 10^6/ul (4.20-5.40); RED CELL DISTRIBUTION WIDTH 14.7 % (11.5-14.5)
[2019-02-17 05:15] LABS: WHITE BLOOD COUNT 6.8 10^3/ul (4.8-10.8)
[2019-02-17 05:23] LABS: ADD MAN DIFF? YES; POSITIVE DIFF @See below
[2019-02-17 05:33] LABS: MAGNESIUM 2.2 mg/dl (1.7-2.5)
[2019-02-17 06:31] LABS: ALANINE AMINOTRANSFERASE 36 IU/L (13-69); ALBUMIN 2.1 g/dl (3.3-4.9); ALBUMIN/GLOBULIN RATIO 0.77; ALKALINE PHOSPHATASE 81 IU/L (42-121); ANION GAP 6 (5-13); ASPARTATE AMINO TRANSFERASE 24 IU/L (15-46); BILIRUBIN,INDIRECT 0.5 mg/dl (0-1.1); BILIRUBIN,TOTAL 0.5 mg/dl (0.2-1.3); BLOOD UREA NITROGEN 43 mg/dl (7-20); CALCIUM 7.1 mg/dl (8.4-10.2); CARBON DIOXIDE 24 mmol/L (21-31); CHLORIDE 109 mmol/L (97-110); CREATININE 1.24 mg/dl (0.44-1.00); GLUCOSE 75 mg/dl (70-220); POTASSIUM 4.1 mmol/L (3.5-5.1); SODIUM 139 mmol/L (135-144); TOTAL PROTEIN 4.8 g/dl (6.1-8.1)
[2019-02-17 07:42] LABS: ANISOCYTOSIS 1+ (0-0); BAND NEUTROPHILS % (M) 59 % (0-4); BURR CELLS 2+ (0-0); GIANT THROMBO% (M) 1 % (0-0); LYMPHOCYTES #M 0.2 10^3/ul (0.8-2.9); LYMPHOCYTES % (M) 3 % (15-51); METAMYELOCYTES #M 0.1 10^3/ul (0.0-0.0); METAMYELOCYTES %M 2 % (0-0); MONOCYTE #M 0.4 10^3/ul (0.3-0.9); MONOCYTES % (M) 6 % (0-11); OVALOCYTES 1+ (0-0); PLATELET ESTIMATE NORMAL; POIKILOCYTOSIS 2+ (0-0); POLYCHROMASIA 1+ (0-0); SEG NEUT #M 2.3 10^3/ul (1.6-7.5); SEGMENTED NEUTROPHILS (M) % 30 % (39-77); SMUDGE%M 43 % (0-0)
[2019-02-17 08:06] LABS: ABNORMAL IP MESSAGE 1; HEMATOCRIT 28.4 % (37.0-47.0); HEMOGLOBIN 9.3 g/dl (12.0-16.0); MEAN CORPUSCULAR HEMOGLOBIN 28.6 pg (29.0-33.0); MEAN CORPUSCULAR HGB CONC 32.7 g/dl (32.0-37.0); MEAN CORPUSCULAR VOLUME 87.4 fl (82.0-101.0); MEAN PLATELET VOLUME 10.1 fl (7.4-10.4); PLATELET COUNT 186 10^3/UL (140-415); RED BLOOD COUNT 3.25 10^6/ul (4.20-5.40); RED CELL DISTRIBUTION WIDTH 14.6 % (11.5-14.5)
[2019-02-17 08:06] LABS: WHITE BLOOD COUNT 6.2 10^3/ul (4.8-10.8)
[2019-02-17 08:23] LABS: ADD MAN DIFF? YES; POSITIVE DIFF @See below
[2019-02-17] MEDS: LEVETIRACETAM 500 MG (PMX) 100 ML IVPB ×2 (09:11→20:15)
[2019-02-17] MEDS: FAMOTIDINE 20 MG INJ IV ×2 (09:12→17:33)
[2019-02-17] MEDS: DEXAMETHASONE 4 MG/ML 1 ML INJ IV ×2 (09:12→20:15)
[2019-02-17] MEDS: Insulin NOVOLOG SS MILD Algorithm (SS with meals and bedtime) SC ×4 (09:19→20:16)
[2019-02-17 10:36] LABS: ANISOCYTOSIS 1+ (0-0); BAND NEUTROPHILS #M 3.7 10^3/ul (0.0-0.6); BAND NEUTROPHILS % (M) 61 % (0-4); BURR CELLS 1+ (0-0); LYMPHOCYTES #M 0.3 10^3/ul (0.8-2.9); LYMPHOCYTES % (M) 6 % (15-51); METAMYELOCYTES #M 0.1 10^3/ul (0.0-0.0); METAMYELOCYTES %M 2 % (0-0); MONOCYTE #M 0.2 10^3/ul (0.3-0.9); MONOCYTES % (M) 4 % (0-11); OVALOCYTES 1+ (0-0); PLATELET ESTIMATE NORMAL; POIKILOCYTOSIS 2+ (0-0); POLYCHROMASIA 1+ (0-0); REACTIVE LYMPHOCYTES% (M) 1 % (0-0); SEG NEUT #M 1.8 10^3/ul (1.6-7.5); SEGMENTED NEUTROPHILS (M) % 26 % (39-77); SMUDGE%M 51 % (0-0)
[2019-02-17] MEDS: SOD CHLORIDE 0.9% 1,000 ML IV (12:31)
[2019-02-17] MEDS ORDERED: VANCOMYCIN 750 MG (PMX) 250 ML IVPB (15:00)
[2019-02-17] MEDS: VANCOMYCIN 1 GM 250 ML IVPB (16:28)
[2019-02-17] MEDS: ATORVASTATIN 40 MG TAB PO (20:15)
[2019-02-17] MEDS: traZODone 50 MG TAB PO (20:16)
[2019-02-18] MEDS: PIPER-TAZO 2.25 GM (PMX) 50 ML IVPB ×2 (01:26→05:00)
[2019-02-18] MEDS: SOD CHLORIDE 0.9% 1,000 ML IV ×2 (01:27→16:11)
[2019-02-18] MEDS: FAMOTIDINE 20 MG INJ IV ×2 (04:58→18:00)
[2019-02-18] MEDS: ALBUMIN HUMAN 25% 100 ML IV (04:59)
[2019-02-18 05:22] LABS: WHITE BLOOD COUNT 8.9 10^3/ul (4.8-10.8)
[2019-02-18 05:22] LABS: ABNORMAL IP MESSAGE 1; HEMATOCRIT 24.6 % (37.0-47.0); MEAN CORPUSCULAR HEMOGLOBIN 29.3 pg (29.0-33.0); MEAN CORPUSCULAR HGB CONC 32.5 g/dl (32.0-37.0); MEAN CORPUSCULAR VOLUME 90.1 fl (82.0-101.0); MEAN PLATELET VOLUME 10.8 fl (7.4-10.4); PLATELET COUNT 132 10^3/UL (140-415); RED BLOOD COUNT 2.73 10^6/ul (4.20-5.40)
[2019-02-18 05:36] LABS: ADD MAN DIFF? YES; POSITIVE DIFF @See below
[2019-02-18 05:46] LABS: ALANINE AMINOTRANSFERASE 29 IU/L (13-69); ALBUMIN 1.8 g/dl (3.3-4.9); ALBUMIN/GLOBULIN RATIO 0.75; ALKALINE PHOSPHATASE 69 IU/L (42-121); ANION GAP 4 (5-13); ASPARTATE AMINO TRANSFERASE 19 IU/L (15-46); BILIRUBIN,INDIRECT 0.3 mg/dl (0-1.1); BILIRUBIN,TOTAL 0.3 mg/dl (0.2-1.3); BLOOD UREA NITROGEN 27 mg/dl (7-20); CALCIUM 6.9 mg/dl (8.4-10.2); CARBON DIOXIDE 23 mmol/L (21-31); CHLORIDE 114 mmol/L (97-110); CREATININE 0.75 mg/dl (0.44-1.00); GLUCOSE 76 mg/dl (70-220); POTASSIUM 3.8 mmol/L (3.5-5.1); SODIUM 141 mmol/L (135-144); TOTAL PROTEIN 4.2 g/dl (6.1-8.1)
[2019-02-18 06:04] LABS: MAGNESIUM 2.2 mg/dl (1.7-2.5)
[2019-02-18] MEDS: Insulin NOVOLOG SS MILD Algorithm (SS with meals and bedtime) SC ×4 (07:00→21:00)
[2019-02-18] MEDS: GLUCOSE GEL 15 GRAM TUBE BUCCAL ×2 (08:09→09:57)
[2019-02-18] MEDS: DEXAMETHASONE 4 MG/ML 1 ML INJ IV ×2 (09:05→21:02)
[2019-02-18 09:42] LABS: BAND NEUTROPHILS #M 1.9 10^3/ul (0.0-0.6); BAND NEUTROPHILS % (M) 22 % (0-4); BURR CELLS 1+ (0-0); LYMPHOCYTES % (M) 1 % (15-51); METAMYELOCYTES %M 1 % (0-0); MONOCYTE #M 0.3 10^3/ul (0.3-0.9); MONOCYTES % (M) 4 % (0-11); MYELOCYTES % (M) 1 % (0-0); OVALOCYTES 2+ (0-0); PLATELET ESTIMATE DECREASED; POIKILOCYTOSIS 2+ (0-0); POLYCHROMASIA 2+ (0-0); SEG NEUT #M 6.5 10^3/ul (1.6-7.5); SEGMENTED NEUTROPHILS (M) % 71 % (39-77); SMUDGE%M 1 % (0-0)
[2019-02-18] MEDS: LEVETIRACETAM 500 MG (PMX) 100 ML IVPB ×2 (09:46→21:02)
[2019-02-18] MEDS: MEROPENEM 1 GM/50ML(PMX) 50 ML IVPB ×2 (11:23→21:02)
[2019-02-18] MEDS: VANCOMYCIN 1 GM 250 ML IVPB (16:11)
[2019-02-18] MEDS: ATORVASTATIN 40 MG TAB PO (21:01)
[2019-02-18] MEDS: traZODone 50 MG TAB PO (21:01)
[2019-02-19] MEDS: SOD CHLORIDE 0.9% 1,000 ML IV (02:30)
[2019-02-19] MEDS: FAMOTIDINE 20 MG INJ IV (05:55)
[2019-02-19] MEDS: Insulin NOVOLOG SS MILD Algorithm (SS with meals and bedtime) SC ×4 (05:56→20:46)
[2019-02-19 06:09] LABS: WHITE BLOOD COUNT 7.9 10^3/ul (4.8-10.8)
[2019-02-19 06:09] LABS: ABNORMAL IP MESSAGE 1; HEMATOCRIT 22.3 % (37.0-47.0); HEMOGLOBIN 7.2 g/dl (12.0-16.0); MEAN CORPUSCULAR HEMOGLOBIN 28.9 pg (29.0-33.0); MEAN CORPUSCULAR HGB CONC 32.3 g/dl (32.0-37.0); MEAN CORPUSCULAR VOLUME 89.6 fl (82.0-101.0); MEAN PLATELET VOLUME 11.1 fl (7.4-10.4); PLATELET COUNT 120 10^3/UL (140-415); RED BLOOD COUNT 2.49 10^6/ul (4.20-5.40)
[2019-02-19 06:11] LABS: POSITIVE DIFF @See below
[2019-02-19 06:12] LABS: ADD MAN DIFF? YES
[2019-02-19 06:27] LABS: PHOSPHORUS 2.4 mg/dl (2.5-4.9)
[2019-02-19 06:34] LABS: ALANINE AMINOTRANSFERASE 27 IU/L (13-69); ALBUMIN 1.9 g/dl (3.3-4.9); ALBUMIN/GLOBULIN RATIO 0.82; ALKALINE PHOSPHATASE 63 IU/L (42-121); ANION GAP 2 (5-13); ASPARTATE AMINO TRANSFERASE 17 IU/L (15-46); BILIRUBIN,INDIRECT 0.4 mg/dl (0-1.1); BILIRUBIN,TOTAL 0.4 mg/dl (0.2-1.3); BLOOD UREA NITROGEN 17 mg/dl (7-20); CALCIUM 6.9 mg/dl (8.4-10.2); CARBON DIOXIDE 23 mmol/L (21-31); CHLORIDE 115 mmol/L (97-110); GLUCOSE 82 mg/dl (70-220); POTASSIUM 3.6 mmol/L (3.5-5.1); SODIUM 140 mmol/L (135-144); TOTAL PROTEIN 4.2 g/dl (6.1-8.1)
[2019-02-19] MEDS: LEVETIRACETAM 500 MG (PMX) 100 ML IVPB ×2 (08:17→20:40)
[2019-02-19] MEDS: DEXAMETHASONE 2 MG TAB PO (08:17)
[2019-02-19] MEDS: MEROPENEM 1 GM/50ML(PMX) 50 ML IVPB ×2 (08:17→20:40)
[2019-02-19 09:18] LABS: BAND NEUTROPHILS #M 1.1 10^3/ul (0.0-0.6); BAND NEUTROPHILS % (M) 14 % (0-4); ERYTHROBLAST% (NRBC) (M) 1 % (0-0); LYMPHOCYTES #M 0.2 10^3/ul (0.8-2.9); LYMPHOCYTES % (M) 3 % (15-51); MONOCYTE #M 0.3 10^3/ul (0.3-0.9); MONOCYTES % (M) 4 % (0-11); OVALOCYTES 1+ (0-0); PLATELET ESTIMATE DECREASED; POIKILOCYTOSIS 1+ (0-0); POLYCHROMASIA 1+ (0-0); SEG NEUT #M 6.3 10^3/ul (1.6-7.5); SEGMENTED NEUTROPHILS (M) % 79 % (39-77); SMUDGE%M 7 % (0-0)
[2019-02-19 16:10] LABS: VANCOMYCIN,TROUGH < 5.0 ug/ml (10.0-20.0)
[2019-02-19] MEDS: VANCOMYCIN 1 GM 250 ML IVPB (16:26)
[2019-02-19] MEDS: FAMOTIDINE 20 MG TAB PO (17:45)
[2019-02-19] MEDS: FLUCONAZOLE 100 MG/50 ML (PMX) 50 ML IVPB (17:45)
[2019-02-19] MEDS: ATORVASTATIN 40 MG TAB PO (20:43)
[2019-02-19] MEDS: traZODone 50 MG TAB PO (20:46)
[2019-02-20] MEDS: VANCOMYCIN 1 GM 250 ML IVPB ×2 (04:00→15:46)
[2019-02-20 06:13] LABS: HEMATOCRIT 28.4 % (37.0-47.0); HEMOGLOBIN 9.1 g/dl (12.0-16.0); MEAN CORPUSCULAR HEMOGLOBIN 28.3 pg (29.0-33.0); MEAN CORPUSCULAR VOLUME 88.5 fl (82.0-101.0); MEAN PLATELET VOLUME 10.7 fl (7.4-10.4); PLATELET COUNT 126 10^3/UL (140-415); RED BLOOD COUNT 3.21 10^6/ul (4.20-5.40); RED CELL DISTRIBUTION WIDTH 14.8 % (11.5-14.5)
[2019-02-20 06:13] LABS: WHITE BLOOD COUNT 8.2 10^3/ul (4.8-10.8)
[2019-02-20 06:20] LABS: ADD MAN DIFF? YES; POSITIVE DIFF @See below
[2019-02-20] MEDS: FAMOTIDINE 20 MG TAB PO ×2 (06:24→17:42)
[2019-02-20 06:43] LABS: ALANINE AMINOTRANSFERASE 23 IU/L (13-69); ALBUMIN 2.1 g/dl (3.3-4.9); ALBUMIN/GLOBULIN RATIO 0.84; ALKALINE PHOSPHATASE 82 IU/L (42-121); ANION GAP 4 (5-13); ASPARTATE AMINO TRANSFERASE 18 IU/L (15-46); BILIRUBIN,INDIRECT 0.5 mg/dl (0-1.1); BILIRUBIN,TOTAL 0.5 mg/dl (0.2-1.3); BLOOD UREA NITROGEN 12 mg/dl (7-20); CALCIUM 7.4 mg/dl (8.4-10.2); CARBON DIOXIDE 26 mmol/L (21-31); CHLORIDE 110 mmol/L (97-110); CREATININE 0.43 mg/dl (0.44-1.00); GLUCOSE 77 mg/dl (70-220); POTASSIUM 3.6 mmol/L (3.5-5.1); SODIUM 140 mmol/L (135-144); TOTAL PROTEIN 4.6 g/dl (6.1-8.1)
[2019-02-20 06:47] LABS: MAGNESIUM 1.9 mg/dl (1.7-2.5)
[2019-02-20] MEDS: Insulin NOVOLOG SS MILD Algorithm (SS with meals and bedtime) SC ×4 (07:00→20:49)
[2019-02-20 08:01] LABS: BAND NEUTROPHILS % (M) 1 % (0-4); HYPOCHROMASIA 1+ (0-0); LYMPHOCYTES #M 0.5 10^3/ul (0.8-2.9); LYMPHOCYTES % (M) 7 % (15-51); MONOCYTE #M 0.2 10^3/ul (0.3-0.9); MONOCYTES % (M) 3 % (0-11); OVALOCYTES 1+ (0-0); PLATELET ESTIMATE DECREASED; POIKILOCYTOSIS 1+ (0-0); SEG NEUT #M 7.3 10^3/ul (1.6-7.5); SEGMENTED NEUTROPHILS (M) % 89 % (39-77); SMUDGE%M 13 % (0-0)
[2019-02-20] MEDS: LEVETIRACETAM 500 MG (PMX) 100 ML IVPB ×2 (08:31→20:47)
[2019-02-20] MEDS: MEROPENEM 1 GM/50ML(PMX) 50 ML IVPB ×2 (09:07→20:48)
[2019-02-20] MEDS: DEXAMETHASONE 2 MG TAB PO (09:07)
[2019-02-20] MEDS: ACETAMINOPHEN 325 MG TAB PO (17:42)
[2019-02-20] MEDS: FLUCONAZOLE 100 MG/50 ML (PMX) 50 ML IVPB (17:42)
[2019-02-20] MEDS: ATORVASTATIN 40 MG TAB PO (20:48)
[2019-02-20] MEDS: traZODone 50 MG TAB PO (20:49)
[2019-02-21 03:03] LABS: WHITE BLOOD COUNT 6.8 10^3/ul (4.8-10.8)
[2019-02-21 03:03] LABS: HEMATOCRIT 27.2 % (37.0-47.0); HEMOGLOBIN 8.8 g/dl (12.0-16.0); MEAN CORPUSCULAR HEMOGLOBIN 28.2 pg (29.0-33.0); MEAN CORPUSCULAR HGB CONC 32.4 g/dl (32.0-37.0); MEAN CORPUSCULAR VOLUME 87.2 fl (82.0-101.0); MEAN PLATELET VOLUME 10.6 fl (7.4-10.4); PLATELET COUNT 135 10^3/UL (140-415); RED BLOOD COUNT 3.12 10^6/ul (4.20-5.40); RED CELL DISTRIBUTION WIDTH 14.6 % (11.5-14.5)
[2019-02-21 03:07] LABS: ADD MAN DIFF? YES; POSITIVE DIFF @See below
[2019-02-21 03:41] LABS: PHOSPHORUS 2.2 mg/dl (2.5-4.9)
[2019-02-21 03:41] LABS: MAGNESIUM 1.8 mg/dl (1.7-2.5)
[2019-02-21 03:42] LABS: ALANINE AMINOTRANSFERASE 24 IU/L (13-69); ALKALINE PHOSPHATASE 82 IU/L (42-121); ANION GAP 6 (5-13); ASPARTATE AMINO TRANSFERASE 14 IU/L (15-46); BILIRUBIN,INDIRECT 0.4 mg/dl (0-1.1); BILIRUBIN,TOTAL 0.4 mg/dl (0.2-1.3); BLOOD UREA NITROGEN 9 mg/dl (7-20); CARBON DIOXIDE 27 mmol/L (21-31); CHLORIDE 110 mmol/L (97-110); CREATININE 0.38 mg/dl (0.44-1.00); GLUCOSE 91 mg/dl (70-220); POTASSIUM 3.3 mmol/L (3.5-5.1); SODIUM 143 mmol/L (135-144); TOTAL PROTEIN 4.5 g/dl (6.1-8.1)
[2019-02-21] MEDS: VANCOMYCIN 1 GM 250 ML IVPB ×2 (04:42→15:41)
[2019-02-21 05:49] LABS: LYMPHOCYTES #M 0.6 10^3/ul (0.8-2.9); LYMPHOCYTES % (M) 9 % (15-51); MONOCYTE #M 0.4 10^3/ul (0.3-0.9); MONOCYTES % (M) 6 % (0-11); OVALOCYTES 1+ (0-0); PLATELET ESTIMATE DECREASED; POIKILOCYTOSIS 1+ (0-0); POLYCHROMASIA 1+ (0-0); SEGMENTED NEUTROPHILS (M) % 85 % (39-77); SMUDGE%M 9 % (0-0)
[2019-02-21] MEDS: FAMOTIDINE 20 MG TAB PO ×2 (06:04→17:24)
[2019-02-21] MEDS: Insulin NOVOLOG SS MILD Algorithm (SS with meals and bedtime) SC ×2 (07:00→11:30)
[2019-02-21] MEDS: POTASSIUM CHLORIDE (SR) 20 MEQ TAB PO (08:03)
[2019-02-21] MEDS: DEXAMETHASONE 2 MG TAB PO (08:37)
[2019-02-21] MEDS: POTASSIUM CHLORIDE 20 MEQ POWDER FOR ORAL SOLN PO (08:38)
[2019-02-21] MEDS: LEVETIRACETAM 500 MG (PMX) 100 ML IVPB ×2 (08:39→20:24)
[2019-02-21] MEDS: MEROPENEM 1 GM/50ML(PMX) 50 ML IVPB ×2 (09:37→20:24)
[2019-02-21] MEDS: SOD CHLORIDE 0.45% 1,000 ML IV (11:56)
[2019-02-21] MEDS: Insulin NOVOLOG SS MILD Algorithm (NPO/TPN/ENTERAL FEEDS) SC ×2 (17:00→21:00)
[2019-02-21] MEDS ORDERED: INSULIN ASPART [NOVOLOG] 3 ML PEN SC (17:00)
[2019-02-21] MEDS: FLUCONAZOLE 100 MG/50 ML (PMX) 50 ML IVPB (18:07)
[2019-02-21] MEDS: ATORVASTATIN 40 MG TAB PO (20:24)
[2019-02-21] MEDS: traZODone 50 MG TAB PO (20:24)
[2019-02-22] MEDS: Insulin NOVOLOG SS MILD Algorithm (NPO/TPN/ENTERAL FEEDS) SC ×6 (01:00→21:00)
[2019-02-22] MEDS: SOD CHLORIDE 0.45% 1,000 ML IV ×2 (04:40→08:29)
[2019-02-22] MEDS: FAMOTIDINE 20 MG TAB PO (05:15)
[2019-02-22] MEDS: LEVETIRACETAM 500 MG (PMX) 100 ML IVPB ×2 (08:28→21:34)
[2019-02-22] MEDS: DEXAMETHASONE 2 MG TAB PO (08:32)
[2019-02-22] MEDS: DEXTROSE 50% 50 ML SYRINGE IV ×2 (08:47→21:15)
[2019-02-22] MEDS: MEROPENEM 1 GM/50ML(PMX) 50 ML IVPB ×2 (08:49→20:58)
[2019-02-22] MEDS: DEXTROSE 5%-0.45% NACL 1,000 ML IV (10:50)
[2019-02-22] MEDS: FAMOTIDINE 20 MG INJ IV (17:18)
[2019-02-22] MEDS: FLUCONAZOLE 100 MG/50 ML (PMX) 50 ML IVPB (17:18)
[2019-02-22] MEDS ORDERED: FAMOTIDINE 20 MG TAB NGT (18:00)
[2019-02-22] MEDS: morphine 2 MG INJ IV (20:59)
[2019-02-22] MEDS: traZODone 50 MG TAB PO (21:00)
[2019-02-22] MEDS: ATORVASTATIN 40 MG TAB PO (21:00)
[2019-02-23] MEDS: Insulin NOVOLOG SS MILD Algorithm (NPO/TPN/ENTERAL FEEDS) SC ×6 (00:41→20:21)
[2019-02-23] MEDS: DEXTROSE 5%-0.45% NACL 1,000 ML IV ×2 (04:39→20:11)
[2019-02-23] MEDS: FAMOTIDINE 20 MG INJ IV ×2 (05:38→17:21)
[2019-02-23] MEDS: DEXAMETHASONE 2 MG TAB PO (08:16)
[2019-02-23] MEDS: LEVETIRACETAM 500 MG (PMX) 100 ML IVPB ×2 (08:16→20:11)
[2019-02-23] MEDS: MEROPENEM 1 GM/50ML(PMX) 50 ML IVPB ×2 (08:43→20:16)
[2019-02-23] MEDS: FLUCONAZOLE 100 MG/50 ML (PMX) 50 ML IVPB (17:22)
[2019-02-23] MEDS: traZODone 50 MG TAB PO (20:16)
[2019-02-23] MEDS: ATORVASTATIN 40 MG TAB PO (20:17)
[2019-02-24] MEDS: Insulin NOVOLOG SS MILD Algorithm (NPO/TPN/ENTERAL FEEDS) SC ×6 (01:00→21:00)
[2019-02-24] MEDS: FAMOTIDINE 20 MG INJ IV ×2 (05:07→17:10)
[2019-02-24] MEDS: DEXAMETHASONE 2 MG TAB PO (08:28)
[2019-02-24] MEDS: DEXTROSE 50% 50 ML SYRINGE IV (08:28)
[2019-02-24] MEDS: LEVETIRACETAM 500 MG (PMX) 100 ML IVPB ×2 (08:28→21:13)
[2019-02-24] MEDS: MEROPENEM 1 GM/50ML(PMX) 50 ML IVPB ×2 (08:59→21:13)
[2019-02-24] MEDS: DEXTROSE 5%-0.45% NACL 1,000 ML IV (13:00)
[2019-02-24] MEDS: FLUCONAZOLE 100 MG/50 ML (PMX) 50 ML IVPB (17:09)
[2019-02-24] MEDS: morphine 2 MG INJ IV (17:10)
[2019-02-24] MEDS: ATORVASTATIN 40 MG TAB PO (21:00)
[2019-02-24] MEDS: traZODone 50 MG TAB PO (21:00)
[2019-02-25] MEDS: Insulin NOVOLOG SS MILD Algorithm (NPO/TPN/ENTERAL FEEDS) SC ×6 (01:00→20:34)
[2019-02-25] MEDS: DEXTROSE 5%-0.45% NACL 1,000 ML IV ×3 (02:35→20:36)
[2019-02-25] MEDS: FAMOTIDINE 20 MG INJ IV ×2 (06:16→17:24)
[2019-02-25] MEDS: MEROPENEM 1 GM/50ML(PMX) 50 ML IVPB ×2 (08:22→20:35)
[2019-02-25] MEDS: LEVETIRACETAM 500 MG (PMX) 100 ML IVPB ×2 (08:22→20:34)
[2019-02-25] MEDS: DEXAMETHASONE 2 MG TAB PO (08:37)
[2019-02-25] MEDS: morphine 2 MG INJ IV ×3 (11:54→21:38)
[2019-02-25] MEDS: FLUCONAZOLE 100 MG/50 ML (PMX) 50 ML IVPB (17:23)
[2019-02-25] MEDS: ATORVASTATIN 40 MG TAB PO (20:34)
[2019-02-25] MEDS: traZODone 50 MG TAB PO (20:34)
[2019-02-26] MEDS: Insulin NOVOLOG SS MILD Algorithm (NPO/TPN/ENTERAL FEEDS) SC ×4 (01:00→13:00)
[2019-02-26] MEDS: FAMOTIDINE 20 MG INJ IV ×2 (05:20→18:29)
[2019-02-26] MEDS: MEROPENEM 1 GM/50ML(PMX) 50 ML IVPB ×2 (08:57→20:54)
[2019-02-26] MEDS: LEVETIRACETAM 500 MG (PMX) 100 ML IVPB ×2 (08:57→21:59)
[2019-02-26] MEDS: INSULIN ASPART [NOVOLOG] 3 ML PEN SC ×2 (18:00→21:00)
[2019-02-26] MEDS: DEXTROSE 50% 50 ML SYRINGE IV (18:29)
[2019-02-26] MEDS: FLUCONAZOLE 100 MG/50 ML (PMX) 50 ML IVPB (18:29)
[2019-02-26] MEDS: traZODone 50 MG TAB PO (22:00)
[2019-02-26] MEDS: ATORVASTATIN 40 MG TAB PO (22:00)
[2019-02-27] MEDS: DEXTROSE 5%-0.45% NACL 1,000 ML IV ×3 (01:01→22:47)
[2019-02-27] MEDS: ACCU-CHEK XX (02:00)
[2019-02-27] MEDS: FAMOTIDINE 20 MG INJ IV ×2 (05:57→18:00)
[2019-02-27] MEDS: LEVETIRACETAM 500 MG (PMX) 100 ML IVPB ×2 (07:53→22:43)
[2019-02-27] MEDS: INSULIN ASPART [NOVOLOG] 3 ML PEN SC ×4 (07:53→21:00)
[2019-02-27] MEDS: MEROPENEM 1 GM/50ML(PMX) 50 ML IVPB ×2 (08:52→22:43)
[2019-02-27] MEDS: FLUCONAZOLE 100 MG/50 ML (PMX) 50 ML IVPB (17:30)
[2019-02-27] MEDS: ATORVASTATIN 40 MG TAB PO (22:43)
[2019-02-27] MEDS: traZODone 50 MG TAB PO (22:45)
[2019-02-28] MEDS: ACCU-CHEK XX (02:00)
[2019-02-28] MEDS: FAMOTIDINE 20 MG INJ IV ×2 (06:42→17:45)
[2019-02-28] MEDS: INSULIN ASPART [NOVOLOG] 3 ML PEN SC ×4 (08:00→20:37)
[2019-02-28] MEDS: LEVETIRACETAM 500 MG (PMX) 100 ML IVPB ×2 (09:09→21:26)
[2019-02-28] MEDS: MEROPENEM 1 GM/50ML(PMX) 50 ML IVPB ×2 (09:40→20:28)
[2019-02-28] MEDS: FLUCONAZOLE 100 MG/50 ML (PMX) 50 ML IVPB (17:43)
[2019-02-28] MEDS: DEXTROSE 5%-0.45% NACL 1,000 ML IV ×2 (18:14→20:08)
[2019-02-28] MEDS: traZODone 50 MG TAB PO (21:26)
[2019-02-28] MEDS: ATORVASTATIN 40 MG TAB PO (21:26)
[2019-03-01] MEDS: ACCU-CHEK XX (01:17)
[2019-03-01] MEDS: FAMOTIDINE 20 MG INJ IV ×2 (05:52→18:21)
[2019-03-01] MEDS: INSULIN ASPART [NOVOLOG] 3 ML PEN SC ×4 (08:00→20:24)
[2019-03-01] MEDS: LEVETIRACETAM 500 MG (PMX) 100 ML IVPB ×2 (09:00→20:19)
[2019-03-01] MEDS: MEROPENEM 1 GM/50ML(PMX) 50 ML IVPB (09:31)
[2019-03-01] MEDS: DEXTROSE 5%-0.45% NACL 1,000 ML IV (15:02)
[2019-03-01] MEDS: traZODone 50 MG TAB PO (20:19)
[2019-03-01] MEDS: ATORVASTATIN 40 MG TAB PO (20:19)
[2019-03-01] MEDS: BALSAM PERU/CASTOR OIL 60 GM TUBE TOP (20:19)
[2019-03-02] MEDS: ACCU-CHEK XX (01:42)
[2019-03-02] MEDS: FAMOTIDINE 20 MG INJ IV ×2 (05:44→19:00)
[2019-03-02] MEDS: DEXTROSE 5%-0.45% NACL 1,000 ML IV ×2 (05:44→21:45)
[2019-03-02] MEDS: INSULIN ASPART [NOVOLOG] 3 ML PEN SC ×4 (08:00→21:00)
[2019-03-02] MEDS: BALSAM PERU/CASTOR OIL 60 GM TUBE TOP ×2 (09:26→21:35)
[2019-03-02] MEDS: LEVETIRACETAM 500 MG (PMX) 100 ML IVPB ×2 (09:29→21:31)
[2019-03-02] MEDS: ATORVASTATIN 40 MG TAB PO (21:31)
[2019-03-02] MEDS: traZODone 50 MG TAB PO (21:31)
[2019-03-03] MEDS: ACCU-CHEK XX (02:00)
[2019-03-03] MEDS: FAMOTIDINE 20 MG INJ IV ×2 (05:21→18:22)
[2019-03-03] MEDS: INSULIN ASPART [NOVOLOG] 3 ML PEN SC ×4 (07:58→21:00)
[2019-03-03] MEDS: BALSAM PERU/CASTOR OIL 60 GM TUBE TOP ×2 (08:28→21:24)
[2019-03-03] MEDS: LEVETIRACETAM 500 MG (PMX) 100 ML IVPB ×2 (08:28→21:28)
[2019-03-03] MEDS: DEXTROSE 5%-0.45% NACL 1,000 ML IV (15:20)
[2019-03-03] MEDS: DOCUSATE SODIUM 100 MG CAP PO ×2 (18:22→18:28)
[2019-03-03] MEDS: BISACODYL (EC) 5 MG TAB PO (18:22)
[2019-03-03] MEDS: traZODone 50 MG TAB PO (21:24)
[2019-03-03] MEDS: ATORVASTATIN 40 MG TAB PO (21:24)
[2019-03-04] MEDS: ACCU-CHEK XX (02:00)
[2019-03-04] MEDS: SOD CHLORIDE 0.9% 500 ML IV ×2 (02:08→06:23)
[2019-03-04] MEDS: SOD CHLORIDE 0.9% 1,000 ML IV (03:57)
[2019-03-04] MEDS ORDERED: ALBUMIN HUMAN 25% 100 ML IV (04:00)
[2019-03-04] MEDS: FAMOTIDINE 20 MG INJ IV ×2 (06:30→18:00)
[2019-03-04] MEDS: INSULIN ASPART [NOVOLOG] 3 ML PEN SC ×3 (08:00→18:00)
[2019-03-04] MEDS: BALSAM PERU/CASTOR OIL 60 GM TUBE TOP (08:26)
[2019-03-04] MEDS: LEVETIRACETAM 500 MG (PMX) 100 ML IVPB (08:26)
== END 2019-03-04 15:55 | disposition expired | DRG 374 ==
LOC: TEL 02-12 08:10 → MS1 02-14 02:00 → ICU 02-15 12:32 → MS1 20:44 → ICU 02-09 10:34 → 6WM 02-18 06:39 → 2NE 02-28 19:50
PROC: 09BW8ZX Excision of Right Sphenoid Sinus, Via Natural or Artificial Opening Endoscopic, Diagnostic (ICD-10-PCS; principal; 2019-02-08 13:27)
PROC: 0DBN8ZX Excision of Sigmoid Colon, Via Natural or Artificial Opening Endoscopic, Diagnostic (ICD-10-PCS; 2019-02-08 13:27)
PROC: 0D5K8ZZ Destruction of Ascending Colon, Via Natural or Artificial Opening Endoscopic (ICD-10-PCS; 2019-02-08 13:27)
PROC: 0JH63XZ Insertion of Tunneled Vascular Access Device into Chest Subcutaneous Tissue and Fascia, Percutaneous Approach (ICD-10-PCS; 2019-02-08 13:27)
PROC: 02H633Z Insertion of Infusion Device into Right Atrium, Percutaneous Approach (ICD-10-PCS; 2019-02-08 13:27)
PROC: B214YZZ Fluoroscopy of Right Heart using Other Contrast (ICD-10-PCS; 2019-02-08 13:27)
PROC: 05HN33Z Insertion of Infusion Device into Left Internal Jugular Vein, Percutaneous Approach (ICD-10-PCS; 2019-02-08 13:27)
PROC: B544ZZA Ultrasonography of Left Jugular Veins, Guidance (ICD-10-PCS; 2019-02-08 13:27)
PROC: 07D23ZX Extraction of Left Neck Lymphatic, Percutaneous Approach, Diagnostic (ICD-10-PCS; 2019-02-08 13:27)
DX: C18.7 Malignant neoplasm of sigmoid colon (principal); A41.51 Sepsis due to Escherichia coli [E. coli]; R65.21 Severe sepsis with septic shock; J69.0 Pneumonitis due to inhalation of food and vomit; N17.9 Acute kidney failure, unspecified; C79.31 Secondary malignant neoplasm of brain; G81.94 Hemiplegia, unspecified affecting left nondominant side; E23.0 Hypopituitarism; N13.6 Pyonephrosis; E87.1 Hypo-osmolality and hyponatremia; I46.9 Cardiac arrest, cause unspecified; R57.1 Hypovolemic shock; H49.01 Third [oculomotor] nerve palsy, right eye; R13.10 Dysphagia, unspecified; E87.5 Hyperkalemia; E05.20 Thyrotoxicosis with toxic multinodular goiter without thyrotoxic crisis or storm; G40.909 Epilepsy, unspecified, not intractable, without status epilepticus; D64.9 Anemia, unspecified; H49.9 Unspecified paralytic strabismus; H53.2 Diplopia; D25.9 Leiomyoma of uterus, unspecified; R33.9 Retention of urine, unspecified; R59.0 Localized enlarged lymph nodes; H02.401 Unspecified ptosis of right eyelid; D12.2 Benign neoplasm of ascending colon; D12.5 Benign neoplasm of sigmoid colon; K57.30 Diverticulosis of large intestine without perforation or abscess without bleeding; K64.8 Other hemorrhoids; R29.810 Facial weakness; R73.9 Hyperglycemia, unspecified; Z66 Do not resuscitate; Z79.82 Long term (current) use of aspirin; Z91.81 History of falling
CPT/HCPCS: 36561; 70450; 70496; 70498; 70543; 70551; 70553; 71045; 71260; 74018; 74177; 76536; 76775; 76942; 80048; 80053; 80061; 80069; 80202; 80307; 81001; 82270; 82306; 82378; 82533; 82550; 82553; 82962; 83001; 83036; 83605; 83615; 83735; 84100; 84132; 84133; 84146; 84300; 84436; 84439; 84443; 84480; 84481; 84484; 84560; 85025; 85610; 85730; 87040-91; 87075; 87081; 87086; 87102; 87116; 88305; 88307; 88313; 88331; 88341; 88342; 92526; 92610; 93005; 93306; 93880; 97110; 97162; 97167; 97530